=== PATIENT | female | born 1985 | race Hispanic/Latino ===

== ENCOUNTER → 2018-01-04 16:36 | Outpatient (CLI) | payer OTHER, MEDICAID, SELFPAY ==
--- NOTE | 2018-01-04 | DI.RAD.S_ITS ---
PROCEDURE: XR KNEE LT 3V INDICATIONS: BILATERAL KNEE PAIN TECHNIQUE: 3 views of the knee were acquired. COMPARISON: None. FINDINGS: Bones: No fractures or dislocations. No suspicious bony lesions. Patella erica. Soft tissues: No joint effusion. No suspicious soft tissue calcifications. IMPRESSION: No acute fractures or dislocations. Patella erica which may be positional. Dictated by: Toney Clifford M.D. on 01/04/2018 at 17:13 Approved by: Toney Clifford M.D. on 01/04/2018 at 17:14
--- NOTE | 2018-01-04 | DI.RAD.S_ITS ---
PROCEDURE: XR KNEE RT 3V INDICATIONS: BILATERAL KNEE PAIN TECHNIQUE: 3 views of the knee were acquired. COMPARISON: None. FINDINGS: Bones: No fractures or dislocations. No suspicious bony lesions. Soft tissues: No joint effusion. No suspicious soft tissue calcifications. IMPRESSION: No acute fractures or dislocations. Dictated by: Toney Clifford M.D. on 01/04/2018 at 17:12 Approved by: Toney Clifford M.D. on 01/04/2018 at 17:13
== END ==
PROVIDERS: Family Provider Family Medicine; PCP Family Medicine; Visit Provider Family Medicine
DX: M25.561 Pain in right knee (principal); M25.562 Pain in left knee
CPT/HCPCS: 73562

== ENCOUNTER → 2018-01-31 15:36 | Outpatient (CLI) | payer OTHER, MEDICAID, SELFPAY ==
--- NOTE | 2018-01-31 15:39 | DI.RAD.S_ITS ---
PROCEDURE: XR CHEST 2V INDICATIONS: COUGH TECHNIQUE: 2 views of the chest were acquired. COMPARISON: [facility], , CHEST 2 VIEW, 09/20/2017, 22:34. FINDINGS: Surgical changes and devices: None. Lungs and pleura: No pleural effusions or pneumothorax. Lungs are clear. Mediastinum: Mediastinal contours are normal. Heart size is normal. Bones and chest wall: No suspicious bony abnormalities. Soft tissues appear unremarkable. IMPRESSION: No acute cardiopulmonary disease. Dictated by: Deisi Wilkerson M.D. on 01/31/2018 at 16:19 Approved by: Deisi Wilkerson M.D. on 01/31/2018 at 16:19
== END ==
PROVIDERS: Family Provider Family Medicine; PCP Family Medicine; Visit Provider Family Medicine
DX: R05 Cough (principal)
CPT/HCPCS: 71046

== ENCOUNTER → 2018-06-01 10:13 | Outpatient (REF) | payer OTHER, MEDICAID, SELFPAY | LOC: LAB 10:13 | PROVIDERS: Family Provider Family Medicine; PCP Family Medicine; Visit Provider Nurse Practitioner Family | DX: L98.9 Disorder of the skin and subcutaneous tissue, unspecified (principal); R21 Rash and other nonspecific skin eruption | CPT/HCPCS: 87070; 87077; 87102; 87147; 87186 ==

== ENCOUNTER 2018-07-28 08:15 | Outpatient (RCR) | payer OTHER, MEDICAID, SELFPAY ==
--- NOTE | 2018-07-21 16:56 | PT.OIE ---
Current Diagnoses Tension-type headache, unspecified, not intractable (07/21/18) Strain of other muscles, fascia and tendons at shoulder and upper arm level, unspecified arm, subsequent encounter (07/21/18) Provider Visit Care Team Role Provider Type Tonie Schmitt MD Attending Provider Physician Family Provider Primary Care Provider Specialty: Family Practice Address: [address] [place] [address], [id number] Email: Physical Therapy Initial Evaluation PT-OP-A Visit Information Start: 07/21/18 15:28 Freq: Status: Active Protocol: Document 07/21/18 12:00 DCW (Rec: 07/21/18 16:56 DCW [id number]) Out-Patient Physical Therapy Visit Information Visit Information Visit Type Initial Evaluation Visit Start Time 12:00 Visit Stop Time 12:45 Total Visit Minutes 45 Visit Number 1 Number of MARKETING PLANNING MANAGER Visits 0 Evaluation Information Evaluation Date 07/21/18 PT-OP-B Current Condition Start: 07/21/18 15:28 Freq: Status: Active Protocol: Document 07/21/18 12:00 DCW (Rec: 07/21/18 16:56 DCW [id number]) Current Condition History of Current Condition Onset Date 10 years Current Complaints Migraines, Neck pain History of Current Condition Pt is a 32 year old female presenting with a ten year history of migraines and neck pain, with a worsening over the last 2-3 years. Pt reports she has previously been seen for treatment at this facility 2-3 years ago, but had to stop due to insurance authorization. 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 Pt reports she often has very point-specific pain, typically at her left temporal lobe, and the pain frequently causes vomiting. Pt also has pain radiating down her neck into her shoulder, L>R. 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 Prior Functional Status Baseline Function- ADL's Independent Baseline Function- Mobility Independent Current Functional Impairments (Reported) Functional Limitations- ADL's Pt unable to drive, cook, or clean in the middle of a migraine. Functional Limitations- Work/School Migraines limit pt's effectiveness at work, either needing to call off, or work through it, but when I do that , I might as well not even be there, I can't do anything. PT-OP-C Subjective Start: 07/21/18 15:28 Freq: Status: Active Protocol: Document 07/21/18 12:00 DCW (Rec: 07/21/18 16:56 DCW [id number]) OP-PT Subjective Patient Comments Patient Comments Pt reports during a migraine, she has light, sound, and odor sensitivity. It's like I'm again. Patient Reported Progress Worse Patient Questionnaires Neck Disability Index NDI Score 26/50 = 52% Neck Disability Index Impairment 40 to 59% Impaired (Score 20- 29) OP-PT Pain Assessment Pain Assessment Grid Paper Pain Assessment Grid Completed Yes Location Bilateral superior shoulders Pain Location Details Bilateral superior shoulders, posterior cervical spine, left temproal lobe Intensity 5 Scale Used Numeric (1 - 10) Description Sharp Shooting Stabbing Throbbing Frequency Frequent PT-OP-F Manual Assessment Start: 07/21/18 15:28 Freq: Status: Active Protocol: Document 07/21/18 12:00 DCW (Rec: 07/21/18 16:56 DCW [id number]) Manual Assessments Soft Tissue Assessment Soft Tissue Mobility Assessment Pt presents with Severe tone and tenderness to palpation 3/ 4 - Wincing and withdraw at bilateral suboccipitals, bilateral upper traps, bilateral scalenes, and bilateral cervical paraspinal muscles. Bilateral pecs display moderate tone with tenderness to palpation 2/4 - Pain with wincing. Joint Mobility Assessment Joint Mobility Assessment C2-3 are rotated counter- clockwise, with a tenderness to palpation 2/4 - Pain with wincing. PT-OP-J Posture/Palpation/Skin Start: 07/21/18 15:28 Freq: Status: Active Protocol: Document 07/21/18 12:00 DCW (Rec: 07/21/18 16:56 DCW [id number]) Posture Evaluation Position Sitting Head/C-Spine Posture Excess Extension Forward Head Shoulder Posture (L) Rounded (R) Rounded PT-OP-K Range of Motion Start: 07/21/18 15:28 Freq: Status: Active Protocol: Document 07/21/18 12:00 DCW (Rec: 07/21/18 16:56 DCW [id number]) Cervical Spine Range of Motion Cervical Spine Active Degrees Testing Position Sitting Flexion 30 Extension 25 Rotation Left 38 Rotation Right 41 Lateral Flexion Left 22 Lateral Flexion Right 26 ROM Limitations Soft Tissue Tightness Bony Restriction Muscle Tone Pain PT-OP-L Special Tests Start: 07/21/18 15:28 Freq: Status: Active Protocol: Document 07/21/18 12:00 DCW (Rec: 07/21/18 16:56 DCW [id number]) Special Tests Cervical Spine Special Tests Passive Neck Flexion Test Results Pain, limited ROM Foraminal Compression Test Results Increased pain, no radicular pain Traction Test Results Pain relief PT-OP-Q Treatments Start: 07/21/18 15:28 Freq: Status: Active Protocol: Document 07/21/18 12:00 DCW (Rec: 07/21/18 16:56 DCW [id number]) Therapeutic Exercises Sitting Exercises Upper Trap stretch Sitting Exercise Name UT stretch Side bilateral Reps/Minutes 40 hold Scalene stretch Sitting Exercise Name Scalene stretch Side bilateral Reps/Minutes 40 hold Chin tuck Sitting Exercise Name Seated chin tuck Reps/Minutes 5 hold Standing Exercises Corner pec stretch Standing Exercise Name Pec stretch in corner Side bilateral Reps/Minutes 40 hold PT-OP-T Assessment and Plan Start: 07/21/18 15:28 Freq: Status: Active Protocol: Document 07/21/18 12:00 DCW (Rec: 07/21/18 16:56 DCW [id number]) Physical Therapy Assessment Rehab Potential Rehabilitation Potential Good Evaluation Complexity Number of Personal Factors/Comorbidities 0 Number of Body Systems Impaired 3 Clinical Presentation at Evaluation Unstable Impairments Impairments Functional Activities Pain Posture ROM Soft Tissue Mobility Strength Tone Goals Four Impairment Muscle tone Nickel Operator Goal (LTG) Pt to exhibit moderate tone in bilateral suboccipitals, bilateral upper traps, bilateral scalenes, and bilateral cervical paraspinal muscles LTG Duration 09/21/18 Three Impairment Cervical ROM Nickel Operator Goal (LTG) Pt to increase pain-free cervical flexion to 50? and extension to 45? LTG Duration 09/21/18 Two Impairment Activity participation Short Term Goal (STG) Pt to go one week without having a migraine restrict her driving STG Duration 08/21/18 Assisted Goal (LTG) Pt to go one week without a migraine at work LTG Duration 09/21/18 One Impairment Pt does not have an appropriate home exercise program Short Term Goal (STG) Pt to be independent and compliant with an appropriate HEP STG Duration 08/21/18 Assessment Summary Assessment Pt presents with signs and symptoms consistent with severe migraine activity, cervical tone and limited mobility, greatly affecting her function of work, driving, and housework. Pt has severe paraspinal, upper trap, scalene, and sub-occipital tone, which also appears to be causing rotation of her C2 and C3 vertebrae. 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 Decreasing tone, improving mobility, and improving body mechanics should help decrease frequency and severity of pt' s migraines. Additionally, pt may benefit from modalities to decrease pain and tone. Physical Therapy Plan Frequency and Duration Frequency of Treatment 2x/Week Duration of Treatment 3 months Plan of Care Start Date 07/21/18 Plan of Care End Date 10/19/18 Therapeutic Interventions Therapeutic Interventions Aquatic Therapy Home Exercise Program Joint Mobilizations Manual Therapy Self-Care/Home Management Soft Tissue Mobilization Therapeutic Activities Therapeutic Exercises Modalities Cold Pack/Ice Massage Electric Stimulation Hot Packs Ultrasound Next Visit Focus/Plan Next Note Type Treatment Note Next Visit Plan STM, Pain-control modalities, posture training, computer sitting ergo/pt transfer mechanics training, flexibility
--- NOTE | 2018-07-21 16:57 | PT.OPPOC ---
Current Diagnoses Tension-type headache, unspecified, not intractable (07/21/18) Strain of other muscles, fascia and tendons at shoulder and upper arm level, unspecified arm, subsequent encounter (07/21/18) Provider Visit Care Team Role Provider Type Tonie Schmitt MD Attending Provider Physician Family Provider Primary Care Provider Specialty: Family Practice Address: [address] [place] [address], [id number] Email: Plan Of Care PT-OP-T Assessment and Plan Start: 07/21/18 15:28 Freq: Status: Active Protocol: Document 07/21/18 12:00 DCW (Rec: 07/21/18 16:56 DCW [id number]) Physical Therapy Assessment Rehab Potential Rehabilitation Potential Good Evaluation Complexity Number of Personal Factors/Comorbidities 0 Number of Body Systems Impaired 3 Clinical Presentation at Evaluation Unstable Impairments Impairments Functional Activities Pain Posture ROM Soft Tissue Mobility Strength Tone Goals Four Impairment Muscle tone Nursing Home Goal (LTG) Pt to exhibit moderate tone in bilateral suboccipitals, bilateral upper traps, bilateral scalenes, and bilateral cervical paraspinal muscles LTG Duration 09/21/18 Three Impairment Cervical ROM Nursing Home Goal (LTG) Pt to increase pain-free cervical flexion to 50? and extension to 45? LTG Duration 09/21/18 Two Impairment Activity participation Short Term Goal (STG) Pt to go one week without having a migraine restrict her driving STG Duration 08/21/18 Nursing Home Goal (LTG) Pt to go one week without a migraine at work LTG Duration 09/21/18 One Impairment Pt does not have an appropriate home exercise program Short Term Goal (STG) Pt to be independent and compliant with an appropriate HEP STG Duration 08/21/18 Assessment Summary Assessment Pt presents with signs and symptoms consistent with severe migraine activity, cervical tone and limited mobility, greatly affecting her function of work, driving, and housework. Pt has severe paraspinal, upper trap, scalene, and sub-occipital tone, which also appears to be causing rotation of her C2 and C3 vertebrae. 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 Decreasing tone, improving mobility, and improving body mechanics should help decrease frequency and severity of pt' s migraines. Additionally, pt may benefit from modalities to decrease pain and tone. Physical Therapy Plan Frequency and Duration Frequency of Treatment 2x/Week Duration of Treatment 3 months Plan of Care Start Date 07/21/18 Plan of Care End Date 10/19/18 Therapeutic Interventions Therapeutic Interventions Aquatic Therapy Home Exercise Program Joint Mobilizations Manual Therapy Self-Care/Home Management Soft Tissue Mobilization Therapeutic Activities Therapeutic Exercises Modalities Cold Pack/Ice Massage Electric Stimulation Hot Packs Ultrasound Next Visit Focus/Plan Next Note Type Treatment Note Next Visit Plan STM, Pain-control modalities, posture training, computer sitting ergo/pt transfer mechanics training, flexibility Plan of Care Dates Plan of Care Start Date 07/21/18 Plan of Care End Date 10/19/18 Please Sign and Return: I have reviewed this Plan of Care and certify that the skilled therapy services above are required to meet the patient?s needs. Physician Signature Date Printed Name and Credentials Clinical Instructor Signature Printed Name and Credentials
--- NOTE | 2018-07-28 09:00 | PT.OTN ---
Current Diagnoses Tension-type headache, unspecified, not intractable (07/28/18) Strain of other muscles, fascia and tendons at shoulder and upper arm level, unspecified arm, initial encounter (07/28/18) Physical Therapy Treatment Note PT-OP-A Visit Information Start: 07/21/18 15:28 Freq: Status: Active Protocol: Document 07/28/18 08:16 SAK (Rec: 07/28/18 09:00 SAK [id number]) Out-Patient Physical Therapy Visit Information Visit Information Visit Type Treatment Note Visit Start Time 08:15 Visit Stop Time 09:05 Total Visit Minutes 50 Visit Number 2 Number of OUTSIDE ENERGY SALES REPRESENTATIVES Visits 0 Evaluation Information Evaluation Date 07/21/18 PT-OP-B Current Condition Start: 07/21/18 15:28 Freq: Status: Active Protocol: Document 07/21/18 12:00 DCW (Rec: 07/21/18 16:56 DCW [id number]) Current Condition History of Current Condition Onset Date 10 years Current Complaints Migraines, Neck pain History of Current Condition Pt is a 32 year old female presenting with a ten year history of migraines and neck pain, with a worsening over the last 2-3 years. Pt reports she has previously been seen for treatment at this facility 2-3 years ago, but had to stop due to insurance authorization. 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 Pt reports she often has very point-specific pain, typically at her left temporal lobe, and the pain frequently causes vomiting. Pt also has pain radiating down her neck into her shoulder, L>R. 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 Prior Functional Status Baseline Function- ADL's Independent Baseline Function- Mobility Independent Current Functional Impairments (Reported) Functional Limitations- ADL's Pt unable to drive, cook, or clean in the middle of a migraine. Functional Limitations- Work/School Migraines limit pt's effectiveness at work, either needing to call off, or work through it, but when I do that , I might as well not even be there, I can't do anything. PT-OP-C Subjective Start: 07/21/18 15:28 Freq: Status: Active Protocol: Document 07/28/18 08:16 SAK (Rec: 07/28/18 09:00 SAK [id number]) OP-PT Subjective Patient Comments Patient Comments Compliant with HEP, no migraine today. PT-OP-F Manual Assessment Start: 07/21/18 15:28 Freq: Status: Active Protocol: Document 07/21/18 12:00 DCW (Rec: 07/21/18 16:56 DCW [id number]) Manual Assessments Soft Tissue Assessment Soft Tissue Mobility Assessment Pt presents with Severe tone and tenderness to palpation 3/ 4 - Wincing and withdraw at bilateral suboccipitals, bilateral upper traps, bilateral scalenes, and bilateral cervical paraspinal muscles. Bilateral pecs display moderate tone with tenderness to palpation 2/4 - Pain with wincing. Joint Mobility Assessment Joint Mobility Assessment C2-3 are rotated counter- clockwise, with a tenderness to palpation 2/4 - Pain with wincing. PT-OP-J Posture/Palpation/Skin Start: 07/21/18 15:28 Freq: Status: Active Protocol: Document 07/21/18 12:00 DCW (Rec: 07/21/18 16:56 DCW [id number]) Posture Evaluation Position Sitting Head/C-Spine Posture Excess Extension Forward Head Shoulder Posture (L) Rounded (R) Rounded PT-OP-K Range of Motion Start: 07/21/18 15:28 Freq: Status: Active Protocol: Document 07/21/18 12:00 DCW (Rec: 07/21/18 16:56 DCW [id number]) Cervical Spine Range of Motion Cervical Spine Active Degrees Testing Position Sitting Flexion 30 Extension 25 Rotation Left 38 Rotation Right 41 Lateral Flexion Left 22 Lateral Flexion Right 26 ROM Limitations Soft Tissue Tightness Bony Restriction Muscle Tone Pain PT-OP-L Special Tests Start: 07/21/18 15:28 Freq: Status: Active Protocol: Document 07/21/18 12:00 DCW (Rec: 07/21/18 16:56 DCW [id number]) Special Tests Cervical Spine Special Tests Passive Neck Flexion Test Results Pain, limited ROM Foraminal Compression Test Results Increased pain, no radicular pain Traction Test Results Pain relief PT-OP-Q Treatments Start: 07/21/18 15:28 Freq: Status: Active Protocol: Document 07/28/18 08:16 [facility] (Rec: 07/28/18 09:00 [facility] [id number]) Cardio Equipment Upper Body Ergometer (UBE) Duration (Minutes) 4 RPM 100 Therapeutic Exercises Sitting Exercises shoulder rolls Reps/Minutes 5x shoulder shrug Reps/Minutes 5x Upper Trap stretch Sitting Exercise Name UT stretch Side bilateral Reps/Minutes 40 hold Scalene stretch Sitting Exercise Name Scalene stretch Side bilateral Reps/Minutes 40 hold Chin tuck Sitting Exercise Name Seated chin tuck Reps/Minutes 5 hold Standing Exercises wall posture Reps/Minutes 3x 5 Corner pec stretch Standing Exercise Name Pec stretch in corner Side bilateral Reps/Minutes 40 hold Manual Therapy Treatment Soft Tissue Mobilization c/s, UT, levator scap Mobilization Type Myofascial Release Strumming Sustained Pressure Manual Traction c/s Details gentle Reps/Duration 3 min Manual Techniques SOR Body Position Hooklying Reps/Duration 5 min Self-Care/Home Management Treatment Education Patient Education Body Mechanics Posture Other Education sitting ergonomics PT-OP-R Modalities Start: 07/21/18 15:28 Freq: Status: Active Protocol: Document 07/28/18 08:16 [facility] (Rec: 07/28/18 09:00 [facility] [id number]) Hot Pack/Cold Pack Treatment Hot Pack Location c/s Patient Position Hooklying Treatment Duration (minutes) 15 PT-OP-T Assessment and Plan Start: 07/21/18 15:28 Freq: Status: Active Protocol: Document 07/28/18 08:16 [facility] (Rec: 07/28/18 09:00 [facility] [id number]) Physical Therapy Assessment Goals Four Impairment Muscle tone Insurance Underwriting Assistant Goal (LTG) Pt to exhibit moderate tone in bilateral suboccipitals, bilateral upper traps, bilateral scalenes, and bilateral cervical paraspinal muscles LTG Duration 09/21/18 Three Impairment Cervical ROM Insurance Underwriting Assistant Goal (LTG) Pt to increase pain-free cervical flexion to 50? and extension to 45? LTG Duration 09/21/18 Two Impairment Activity participation Short Term Goal (STG) Pt to go one week without having a migraine restrict her driving STG Duration 08/21/18 Halfway Goal (LTG) Pt to go one week without a migraine at work LTG Duration 09/21/18 One Impairment Pt does not have an appropriate home exercise program Short Term Goal (STG) Pt to be independent and compliant with an appropriate HEP STG Duration 08/21/18 Assessment Summary Assessment Decreased pain and muscle tension with postural correction, manual techniques. Patient compliant with HEP Physical Therapy Plan Frequency and Duration Frequency of Treatment 2x/Week Duration of Treatment 3 months Plan of Care Start Date 07/21/18 Plan of Care End Date 10/19/18 Therapeutic Interventions Therapeutic Interventions Aquatic Therapy Home Exercise Program Joint Mobilizations Manual Therapy Self-Care/Home Management Soft Tissue Mobilization Therapeutic Activities Therapeutic Exercises Modalities Cold Pack/Ice Massage Electric Stimulation Hot Packs Ultrasound Next Visit Focus/Plan Next Note Type Treatment Note Next Visit Plan Patient transfer training; body mechanics. Continue ther ex, posture training, manual therapy and modalities for pain
--- NOTE | 2018-11-14 14:01 | PT.OPDS ---
Current Diagnoses Tension-type headache, unspecified, not intractable (07/28/18) Strain of other muscles, fascia and tendons at shoulder and upper arm level, unspecified arm, initial encounter (07/28/18) Provider Visit Care Team Role Provider Type Tonie Schmitt MD Attending Provider Physician Family Provider Primary Care Provider Specialty: Family Practice Address: [address] [place] [address], [facility] Email: Visit Number Visit Number 2 Discharge Summary PT-OP-B Current Condition Start: 07/21/18 15:28 Freq: Status: Active Protocol: Document 07/21/18 12:00 DCW (Rec: 07/21/18 16:56 DCW [id number]) Current Condition History of Current Condition Onset Date 10 years Current Complaints Migraines, Neck pain History of Current Condition Pt is a 32 year old female presenting with a ten year history of migraines and neck pain, with a worsening over the last 2-3 years. Pt reports she has previously been seen for treatment at this facility 2-3 years ago, but had to stop due to insurance authorization. 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 Pt reports she often has very point-specific pain, typically at her left temporal lobe, and the pain frequently causes vomiting. Pt also has pain radiating down her neck into her shoulder, L>R. 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 Prior Functional Status Baseline Function- ADL's Independent Baseline Function- Mobility Independent Current Functional Impairments (Reported) Functional Limitations- ADL's Pt unable to drive, cook, or clean in the middle of a migraine. Functional Limitations- Work/School Migraines limit pt's effectiveness at work, either needing to call off, or work through it, but when I do that , I might as well not even be there, I can't do anything. PT-OP-C Subjective Start: 07/21/18 15:28 Freq: Status: Active Protocol: Document 07/28/18 08:16 SAK (Rec: 07/28/18 09:00 SAK [id number]) OP-PT Subjective Patient Comments Patient Comments Compliant with HEP, no migraine today. PT-OP-F Manual Assessment Start: 07/21/18 15:28 Freq: Status: Active Protocol: Document 07/21/18 12:00 DCW (Rec: 07/21/18 16:56 DCW [id number]) Manual Assessments Soft Tissue Assessment Soft Tissue Mobility Assessment Pt presents with Severe tone and tenderness to palpation 3/ 4 - Wincing and withdraw at bilateral suboccipitals, bilateral upper traps, bilateral scalenes, and bilateral cervical paraspinal muscles. Bilateral pecs display moderate tone with tenderness to palpation 2/4 - Pain with wincing. Joint Mobility Assessment Joint Mobility Assessment C2-3 are rotated counter- clockwise, with a tenderness to palpation 2/4 - Pain with wincing. PT-OP-J Posture/Palpation/Skin Start: 07/21/18 15:28 Freq: Status: Active Protocol: Document 07/21/18 12:00 DCW (Rec: 07/21/18 16:56 DCW [id number]) Posture Evaluation Position Sitting Head/C-Spine Posture Excess Extension Forward Head Shoulder Posture (L) Rounded (R) Rounded PT-OP-K Range of Motion Start: 07/21/18 15:28 Freq: Status: Active Protocol: Document 07/21/18 12:00 DCW (Rec: 07/21/18 16:56 DCW [id number]) Cervical Spine Range of Motion Cervical Spine Active Degrees Testing Position Sitting Flexion 30 Extension 25 Rotation Left 38 Rotation Right 41 Lateral Flexion Left 22 Lateral Flexion Right 26 ROM Limitations Soft Tissue Tightness Bony Restriction Muscle Tone Pain PT-OP-L Special Tests Start: 07/21/18 15:28 Freq: Status: Active Protocol: Document 07/21/18 12:00 DCW (Rec: 07/21/18 16:56 DCW [id number]) Special Tests Cervical Spine Special Tests Passive Neck Flexion Test Results Pain, limited ROM Foraminal Compression Test Results Increased pain, no radicular pain Traction Test Results Pain relief PT-OP-T Assessment and Plan Start: 07/21/18 15:28 Freq: Status: Active Protocol: Document 11/14/18 13:59 DCW (Rec: 11/14/18 14:00 DCW [id number]) Physical Therapy Assessment Goals Four Impairment Muscle tone Slip Caster Goal (LTG) Pt to exhibit moderate tone in bilateral suboccipitals, bilateral upper traps, bilateral scalenes, and bilateral cervical paraspinal muscles LTG Duration 09/21/18 Three Impairment Cervical ROM Slip Caster Goal (LTG) Pt to increase pain-free cervical flexion to 50? and extension to 45? LTG Duration 09/21/18 Two Impairment Activity participation Short Term Goal (STG) Pt to go one week without having a migraine restrict her driving STG Duration 08/21/18 Long-Term Goal (LTG) Pt to go one week without a migraine at work LTG Duration 09/21/18 One Impairment Pt does not have an appropriate home exercise program Short Term Goal (STG) Pt to be independent and compliant with an appropriate HEP STG Duration 08/21/18 Assessment Summary Assessment Following her first two appointments, pt called to request cancellation of her remaining appointments, reports she would be unable to commit to PT due to her work schedule. Pt to be discharged from skilled PT at this time. Physical Therapy Plan Discharge Physical Therapy Discharge Reasons Patient Request Next Visit Focus/Plan Next Note Type Discharge Summary
== END 2018-11-20 10:36 | disposition home or self-care (01) ==
LOC: PHYS 08:15
PROVIDERS: Family Provider Family Medicine; PCP Family Medicine; Visit Provider Family Medicine
DX: S46.819A Strain of other muscles, fascia and tendons at shoulder and upper arm level, unspecified arm, initial encounter (principal); G44.209 Tension-type headache, unspecified, not intractable
CPT/HCPCS: 97110; 97140; 97161; 97535

== ENCOUNTER 2018-08-27 12:42 | Emergency (ER) | payer OTHER, MEDICAID, SELFPAY ==
[2018-08-27 12:54] VITALS: BP 149/92; PULSE 74; RESP 16; O2SAT 100; BMI 55.7
--- NOTE | 2018-08-27 15:48 | ED.EAR ---
HPI - Ear Problem <BIBIANA Calderon - Last Filed: 08/27/18 21:34> General Chief complaint: Ear Stated complaint: Thinks popped eardrum Time Seen by Provider: 08/27/18 15:48 Source: patient Mode of arrival: ambulatory Limitations: no limitations History of Present Illness HPI Narrative: 33-year-old female history of migraines that is a nonsmoker here for complaint of pain into her right ear. She states that she blew her nose last night and felt a pop to her right ear and has had some discomfort to that ear since then. She denies any drainage from the ear. She does state that she has had cold-like symptoms with nasal congestion over the past several days. No fevers no chills. Positive p.o. intake. No other concerns or complaints at this timeframe. She denies any decrease of hearing ability. Related Data Previous Rx's Medication Instructions Recorded oxycodone-acetaminophen [Endocet] 1 - 2 tab PO Q4HP PRN #20 tab 07/28/17 Allergies Allergy/AdvReac Type Severity Reaction Status Date / Time ketorolac [KETOROLAC] Allergy Mild ITCHING Verified 08/27/18 12:54 ALL OVER, VOMITING hepatitis B virus vaccine Allergy Unknown Verified 08/27/18 12:54 [HEPATITIS B VIRUS VACCINE] latex [LATEX] Allergy Unknown Verified 08/27/18 12:54 tuberculin,PPD,multi-puncture Allergy Unknown Verified 08/27/18 12:54 [TUBERCULIN,PPD,MULTI-PUNCTURE] Review of Systems <BIBIANA Calderon - Last Filed: 08/27/18 21:34> Constitutional Denies chills, Denies fever(s), Denies lethargy and Denies weakness Eyes Denies change in vision, Denies eye discharge, Denies irritation and Denies loss of vision ENT Ears, Nose, Mouth, and Throat: Reports otalgia and Reports nasal congestion Cardiovascular Denies chest pain, Denies irregular heart rhythm, Denies lightheadedness, Denies palpitations, Denies dyspnea, Denies dyspnea on exertion and Denies orthopnea Respiratory Denies cough, Denies dyspnea, Denies dyspnea on exertion and Denies wheezing Gastrointestinal Gastrointestinal: Denies abdominal pain, Denies change in bowel habits, Denies diarrhea, Denies nausea and Denies vomiting Genitourinary Denies hematuria, Denies flank pain, Denies urinary incontinence and Denies urinary urgency Integumentary/Breasts Denies pruritus, Denies erythema, Denies rash and Denies wounds Neurologic Denies confusion, Denies loss of vision and Denies weakness Psychiatric Denies anxiety, Denies confusion, Denies depression, Denies homicidal ideation and Denies suicidal ideation Endocrine Denies palpitations Hematologic/Lymphatic Denies easy bruising Allergic/Immunologic Denies wheezing Exam <BIBIANA Calderon - Last Filed: 08/27/18 21:34> Initial Vital Signs Initial Vital Signs: Vital Signs Pulse Rate 74 08/27/18 12:54 Respiratory Rate 16 08/27/18 12:54 Blood Pressure 149/92 H 08/27/18 12:54 Pulse Oximetry 100 08/27/18 12:54 Const General: cooperative and well developed Nutritional Appearance: well nourished Orientation: alert, awake, oriented x3 and not confused HENMT Head: normal to inspection Ears: external ears normal and TM's normal bilaterally Mouth: oral mucosae normal and moist mucous membranes Eyes Eyelids: eyelids normal Conjunctivae: conjunctivae normal Sclera: sclerae normal Pupils: PERRL EOM: EOM intact bilaterally Resp Effort & Inspection: normal respiratory effort, able to speak in complete sentences, no respiratory distress and no use of accessory muscles Auscultation: clear to auscultation bilaterally, no rales, no rhonchi and no wheezes Cardio Rate: regular rate Rhythm: regular rhythm Heart Sounds: no click, no gallops, no murmurs and no rubs Pulses: normal peripheral pulses Skin General: no rashes or lesions noted, No jaundice and No petechiae Neuro General: alert, oriented x3, gait normal and no focal motor deficits Speech: speech normal <Kimani Acosta DO - Last Filed: 08/28/18 08:30> Initial Vital Signs Initial Vital Signs: Vital Signs Pulse Rate 74 08/27/18 12:54 Respiratory Rate 16 08/27/18 12:54 Blood Pressure 149/92 H 08/27/18 12:54 Pulse Oximetry 100 08/27/18 12:54 Course <BIBIANA Calderon - Last Filed: 08/27/18 21:34> Vital Signs - 8 hr 08/27/18 16:28 Pulse Rate 84 Respiratory Rate 16 Blood Pressure 136/90 Pulse Oximetry 97 <Kimani Acosta DO - Last Filed: 08/28/18 08:30> Vital Signs - 8 hr 08/27/18 16:28 Pulse Rate 84 Respiratory Rate 16 Blood Pressure 136/90 Pulse Oximetry 97 Medical Decision Making <BIBIANA Calderon - Last Filed: 08/27/18 21:34> MDM Narrative Medical decision making narrative: Normal exam today with no signs of ear infection or tympanic rupture. Signs and symptoms presents as serous otitis secondary to a viral upper respiratory infection. Plenty of fluids and rest. [id number] Tylenol or Motrin as needed for any discomfort. May also use jfhj-jeg-[id number] guaifenesin for congestion. Follow up with primary care provider. Return emergency room for any worsening symptoms. Discharge Plan Departure Patient Disposition: Home Clinical Impression: Acute serous otitis media Discharge Date/Time: 08/27/18 16:30 Interventions: ED Discharge Assessment Last Done: 08/27/18 16:28 Instructions: DI for Ear Pain-Adult Activity Restrictions/Additional Instructions: Normal exam today with no signs of ear infection or tympanic rupture. Signs and symptoms presents as serous otitis secondary to a viral upper respiratory infection. Plenty of fluids and rest. [id number]-[id number] Tylenol or Motrin as needed for any discomfort. May also use [id number] guaifenesin for congestion. Follow up with primary care provider. Return emergency room for any worsening symptoms. Prescriptions: No Action oxycodone-acetaminophen [Endocet] 5 MG/325 MG tablet 1 - 2 tab PO Q4HP PRNQty: 20 RF: 0 Referrals: Tonie Schmitt MD [Primary Care Provider] - <Kimani Acosta DO - Last Filed: 08/28/18 08:30> Cosign ED Attending Javier Attestation: I was available for consultation during this patient's emergency department encounter
[2018-08-27 16:28] VITALS: BP 136/90; PULSE 84; RESP 16; O2SAT 97
== END 2018-08-27 16:30 | disposition home or self-care (01) ==
PROVIDERS: Emergency Provider Nurse Practitioner Family; Family Provider Family Medicine; PCP Family Medicine
DX: H65.01 Acute serous otitis media, right ear (principal)
CPT/HCPCS: 99282

== ENCOUNTER 2018-09-17 06:51 | Emergency (ER) | payer OTHER, MEDICAID, SELFPAY ==
[2018-09-17 06:55] VITALS: BP 116/77; PULSE 90; RESP 17; TEMP 36.9; O2SAT 100; BMI 56.1
--- NOTE | 2018-09-17 06:57 | DI.RAD.S_ITS ---
PROCEDURE: XR CHEST 2V INDICATIONS: shortness of breath TECHNIQUE: 2 views of the chest were acquired. COMPARISON: [facility], , XR CHEST 2V, 01/31/2018, 15:18. FINDINGS: Surgical changes and devices: Cholecystectomy clips. Lungs and pleura: Lungs are clear. No pleural effusions or pneumothorax. Mediastinum: Mediastinal contours are normal. Heart size is normal. Bones and chest wall: No suspicious bony abnormalities. Soft tissues appear unremarkable. IMPRESSION: No acute pulmonary process. Dictated by: Ashley Rincon M.D. on 09/17/2018 at 7:59 Approved by: Ashley Rincon M.D. on 09/17/2018 at 8:03
--- NOTE | 2018-09-17 07:21 | ED.CHESTPAIN ---
HPI - Chest Pain General Chief Complaint: Chest Pain Stated Complaint: CHEST HURTS Time Seen by Provider: 09/17/18 06:57 Source: patient Mode of arrival: ambulatory Limitations: no limitations History of Present Illness HPI narrative: Patient is a 33-year-old female presenting with left-sided chest pain ongoing since last last evening at about 10:00 p.m.. 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 She says it is intermittent but does it does hurt when she pushes on it and moves her arm. She denies any injury she has had cough but she does not think it has been too bad. Denies any shortness of breath. No heart palpitations. She has been having some trouble with memory. She says she can't remember what she is allergic to she does not remember what people have been saying to her last evening. No fever or chills no abdominal pain. MD complaint: chest pain Onset (ago): hour(s) Duration: intermittent Pain location: left chest Severity: moderate Pain radiation: none Relieving factors: nothing Exacerbating factors: movement Related Data Home Medications Medication Instructions Recorded Confirmed omeprazole 20 mg PO DAILY 09/17/18 09/17/18 propranolol 10 mg PO BEDTIME 09/17/18 09/17/18 Allergies Allergy/AdvReac Type Severity Reaction Status Date / Time ketorolac [KETOROLAC] Allergy Mild ITCHING Verified 09/17/18 07:54 ALL OVER, VOMITING hepatitis B virus vaccine Allergy Unknown Verified 09/17/18 07:54 [HEPATITIS B VIRUS VACCINE] latex [LATEX] Allergy Unknown Verified 09/17/18 07:54 tuberculin,PPD,multi-puncture Allergy Unknown Verified 09/17/18 07:54 [TUBERCULIN,PPD,MULTI-PUNCTURE] Review of Systems Review of Systems ROS Unobtainable: All systems reviewed & are unremarkable except as noted in HPI and below Constitutional Denies chills, Denies fever(s), Denies lethargy and Denies weakness Cardiovascular Reports chest pain, Denies dyspnea and Denies dyspnea on exertion Respiratory Denies cough, Denies dyspnea, Denies dyspnea on exertion and Denies wheezing Gastrointestinal Gastrointestinal: Denies abdominal pain, Denies change in bowel habits, Denies diarrhea, Denies nausea and Denies vomiting Genitourinary Denies hematuria, Denies flank pain, Denies urinary incontinence and Denies urinary urgency Musculoskeletal Denies back pain, Denies muscle weakness, Denies numbness and Denies tingling Integumentary/Breasts Denies pruritus, Denies erythema, Denies rash and Denies wounds Neurologic Denies numbness, Denies tingling and Denies weakness Allergic/Immunologic Denies wheezing [facility] Medical History Anxiety (Acute) Migraine (Acute) Social History Smoking Status: Never smoker alcohol intake: never substance use type: does not use Social History Smoking Status: Never smoker alcohol intake: never substance use type: does not use Exam Initial Vital Signs Initial Vital Signs: Vital Signs Temperature 98.5 F 09/17/18 06:55 Pulse Rate 90 09/17/18 06:55 Respiratory Rate 17 09/17/18 06:55 Blood Pressure 116/77 09/17/18 06:55 Pulse Oximetry 100 09/17/18 06:55 GENERAL: alert overweight female no acute distress does seem slightly anxious HEENT: Head atraumatic,EOMI, pupils reactive, face symmetric, CARDIOVASCULAR: Regular rate and rhythm without murmurs, rubs or gallops. RESPIRATORY: Breath sounds equal bilaterally, no wheezes rales or rhonchi. ABDOMEN: Soft, nontender. Normoactive bowel sounds all 4 quadrants. No guarding or rebound. EXTREMITIES: Normal range of motion, no clubbing or edema. Neurovascularly intact NEUROLOGICAL: Alert and oriented x4.Normal gait and speech SKIN: Warm, dry, no laceration, no petechiae, no rashes or lesions. Scores HEART Score Heart Score history: Slightly Suspicious Heart Score EKG: Normal Heart Score Age: < 45 years old Heart Score risk factors: No known risk factors Heart Score troponin: < or = to normal limit Heart Score Total: 0 PERC Score Age greater than or equal to 50 years: No Heart rate greater than or equal to 100 bpm: No Room Air O2 Sat less than 95%: No Unilateral leg swelling: No Recent trauma or surgery: No Hemoptysis: No Prior PE or DVT: No Hormone Use: No Total PERC Score: 0 Course Orders Ordered: ED Orders 09/17/18 06:56 EKG-12 Lead Stat 09/17/18 06:57 XR chest 2V Stat 09/17/18 07:28 Complete Blood Count AUTO DIFF Stat Comprehensive Metabolic Panel Stat Lipase Stat Troponin & CK Cardiac Panel Stat Discontinued Medications Aspirin (Aspirin Chew) 324 mg PO NOW ONE Stop: 09/17/18 07:20 Last Admin: 09/17/18 07:36 Dose: Not Given Ibuprofen (Advil) 800 mg PO NOW ONE Stop: 09/17/18 07:20 Last Admin: 09/17/18 07:34 Dose: 800 mg Vital Signs - 8 hr 09/17/18 06:55 09/17/18 07:30 09/17/18 08:00 Temperature 98.5 F Pulse Rate 90 84 85 Respiratory Rate 17 11 L 9 L Blood Pressure 116/77 Blood Pressure [Left Arm] 115/76 120/72 Pulse Oximetry 100 100 96 MDM - Chest Pain Lab Data Attestation: I reviewed the patient's lab results. Result diagrams: 09/17/18 07:28 09/17/18 07:28 Lab Results 09/17/18 09/17/18 Range/Units 07:28 07:28 WBC 11.4 H (4.5-11.0) X10^3/uL RBC 4.62 (4.0-5.2) X10^6/uL Hgb 14.0 (12.0-16.0) g/dL Hct 41.9 (36-46) % MCV 90.7 (80-100) fL MCH 30.4 (26-34) PG MCHC 33.5 (30-36) % RDW 12.9 (11.6-14.8) % Plt Count 272 (150-400) X10^3/uL Neut % (Auto) 47.5 L (50-75) % Lymph % (Auto) 41.5 H (25-40) % Grimes % (Auto) 7.2 (3-14) % Eos % (Auto) 3.1 (2-4) % Baso % (Auto) 0.7 (0-2) % Neut # (Auto) 5400 (2983-2047) /uL Lymph # (Auto) 4700 H (4128-1332) /uL Grimes # (Auto) 800 (0-900) /uL Eos # (Auto) 300 (0-450) /uL Baso # (Auto) 100 (0-100) /uL Sodium 139 (137-145) mmol/L Potassium 3.7 (3.4-5.1) mmol/L Chloride 104 (98-107) mmol/L Carbon Dioxide 25 (22-32) mmol/L BUN 24 H (7-17) mg/dL Creatinine 0.70 (0.52-1.04) mg/dL Estimated GFR > 60.0 (>60) mL/min BUN/Creatinine Ratio 34.3 H (6-22) Glucose 96 (70-100) mg/dL Calcium 8.9 (8.4-10.2) mg/dL Total Bilirubin 0.4 (0.2-1.3) mg/dL AST 29 (14-36) IU/L ALT 44 (9-52) IU/L Alkaline Phosphatase 74 (38-126) U/L Total Creatine Kinase 53 (30-135) U/L CK-MB (CK-2) TNP CK-MB (CK-2) Rel Index TNP Troponin I < 0.012 (0.01-0.034) ng/mL Total Protein 7.8 (6.3-8.2) g/dL Albumin 4.1 (3.5-5.0) g/dL Globulin 3.7 (1.7-4.1) g/dL Albumin/Globulin Ratio 1.1 (1.0-2.8) Lipase 39 (23-300) U/L Imaging Data Chest x-ray: Radiologist's impression: PROCEDURE: XR CHEST 2V INDICATIONS: shortness of breath TECHNIQUE: 2 views of the chest were acquired. COMPARISON: [facility], XR CHEST 2V, 01/31/2018, 15:18. FINDINGS: Surgical changes and devices: Cholecystectomy clips. Lungs and pleura: Lungs are clear. No pleural effusions or pneumothorax. Mediastinum: Mediastinal contours are normal. Heart size is normal. Bones and chest wall: No suspicious bony abnormalities. Soft tissues appear unremarkable. IMPRESSION: No acute pulmonary process. Dictated by: Ashley Rincon M.D. on 09/17/2018 at 7:59 ECG Data Attestation: I personally reviewed and interpreted this ECG as follows: Prior ECG tracings: available for review Interpretation: normal sinus rhythm rate 89 ME interval [address] changes no T-wave inversions similar to previous EKG MDM Narrative Medical decision making narrative: patient's pain is reproducible with movement and palpation. This likely musculoskeletal. Low risk for cardiac disease. low risk for PE. Discharge Plan Departure Patient Disposition: Home Clinical Impression: Acute chest wall pain Discharge Date/Time: 09/17/18 08:36 Interventions: ED Discharge Assessment Last Done: 09/17/18 08:36 Instructions: Costochondritis, DI for Atypical Chest Pain Activity Restrictions/Additional Instructions: *You have been diagnosed with Chest wall pain *What to do: x-ray blood work and EKG are reassuring. This is likely musculoskeletal. Use ice or he has needed to help with pain. *Continue to take medications as directed Ibuprofen 600 mg every 6-8 hours if needed for pain *Follow up with your primary care provider in 2-3 days *Return to ER if you should have increasing pain, shortness of breath heart palpitations or any new, worsening or concerning symptoms Prescriptions: No Action propranolol 10 mg Tablet 10 mg PO BEDTIME RF: 0 omeprazole 20 mg Capsule,Delayed Release(Dr/Ec) 20 mg PO DAILY RF: 0 Referrals: Tonie Schmitt MD [Primary Care Provider] -
--- NOTE | 2018-09-17 07:27 | ED_ITS ---
HPI - Chest Pain General Chief Complaint: Chest Pain Stated Complaint: CHEST HURTS Time Seen by Provider: 09/17/18 06:57 Source: patient Mode of arrival: ambulatory Limitations: no limitations History of Present Illness HPI narrative: Patient is a 33-year-old female presenting with left-sided chest pain ongoing since last last evening at about 10:00 p.m.. 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 She says it is intermittent but does it does hurt when she pushes on it and moves her arm. She denies any injury she has had cough but she does not think it has been too bad. Denies any shortness of breath. No heart palpitations. She has been having some trouble with memory. She says she can't remember what she is allergic to she does not remember what people have been saying to her last evening. No fever or chills no abdominal pain. MD complaint: chest pain Onset (ago): hour(s) Duration: intermittent Pain location: left chest Severity: moderate Pain radiation: none Relieving factors: nothing Exacerbating factors: movement Related Data Home Medications Medication Instructions Recorded Confirmed omeprazole 20 mg PO DAILY 09/17/18 09/17/18 propranolol 10 mg PO BEDTIME 09/17/18 09/17/18 Allergies Allergy/AdvReac Type Severity Reaction Status Date / Time ketorolac [KETOROLAC] Allergy Mild ITCHING Verified 09/17/18 07:54 ALL OVER, VOMITING hepatitis B virus vaccine Allergy Unknown Verified 09/17/18 07:54 [HEPATITIS B VIRUS VACCINE] latex [LATEX] Allergy Unknown Verified 09/17/18 07:54 tuberculin,PPD,multi-puncture Allergy Unknown Verified 09/17/18 07:54 [TUBERCULIN,PPD,MULTI-PUNCTURE] Review of Systems Review of Systems ROS Unobtainable: All systems reviewed & are unremarkable except as noted in HPI and below Constitutional Denies chills, Denies fever(s), Denies lethargy and Denies weakness Cardiovascular Reports chest pain, Denies dyspnea and Denies dyspnea on exertion Respiratory Denies cough, Denies dyspnea, Denies dyspnea on exertion and Denies wheezing Gastrointestinal Gastrointestinal: Denies abdominal pain, Denies change in bowel habits, Denies diarrhea, Denies nausea and Denies vomiting Genitourinary Denies hematuria, Denies flank pain, Denies urinary incontinence and Denies urinary urgency Musculoskeletal Denies back pain, Denies muscle weakness, Denies numbness and Denies tingling Integumentary/Breasts Denies pruritus, Denies erythema, Denies rash and Denies wounds Neurologic Denies numbness, Denies tingling and Denies weakness Allergic/Immunologic Denies wheezing [facility] Medical History Anxiety (Acute) Migraine (Acute) Social History Smoking Status: Never smoker alcohol intake: never substance use type: does not use Social History Smoking Status: Never smoker alcohol intake: never substance use type: does not use Exam Initial Vital Signs Initial Vital Signs: Vital Signs Temperature 98.5 F 09/17/18 06:55 Pulse Rate 90 09/17/18 06:55 Respiratory Rate 17 09/17/18 06:55 Blood Pressure 116/77 09/17/18 06:55 Pulse Oximetry 100 09/17/18 06:55 GENERAL: alert overweight female no acute distress does seem slightly anxious HEENT: Head atraumatic,EOMI, pupils reactive, face symmetric, CARDIOVASCULAR: Regular rate and rhythm without murmurs, rubs or gallops. RESPIRATORY: Breath sounds equal bilaterally, no wheezes rales or rhonchi. ABDOMEN: Soft, nontender. Normoactive bowel sounds all 4 quadrants. No g uarding or rebound. EXTREMITIES: Normal range of motion, no clubbing or edema. Neurovascularly inta ct NEUROLOGICAL: Alert and oriented x4.Normal gait and speech SKIN: Warm, dry, no laceration, no petechiae, no rashes or lesions. Scores HEART Score Heart Score history: Slightly Suspicious Heart Score EKG: Normal Heart Score Age: < 45 years old Heart Score risk factors: No known risk factors Heart Score troponin: < or = to normal limit Heart Score Total: 0 PERC Score Age greater than or equal to 50 years: No Heart rate greater than or equal to 100 bpm: No Room Air O2 Sat less than 95%: No Unilateral leg swelling: No Recent trauma or surgery: No Hemoptysis: No Prior PE or DVT: No Hormone Use: No Total PERC Score: 0 Course Orders Ordered: ED Orders 09/17/18 06:56 EKG-12 Lead Stat 02/24/19 06:57 XR chest 2V Stat 09/17/18 07:28 Complete Blood Count AUTO DIFF Stat Comprehensive Metabolic Panel Stat Lipase Stat Troponin & CK Cardiac Panel Stat Discontinued Medications Aspirin (Aspirin Chew) 324 mg PO NOW ONE Stop: 09/17/18 07:20 Last Admin: 09/17/18 07:36 Dose: Not Given Ibuprofen (Advil) 800 mg PO NOW ONE Stop: 09/17/18 07:20 Last Admin: 09/17/18 07:34 Dose: 800 mg Vital Signs - 8 hr 09/17/18 06:55 09/17/18 07:30 09/17/18 08:00 Temperature 98.5 F Pulse Rate 90 84 85 Respiratory Rate 17 11 L 9 L Blood Pressure 116/77 Blood Pressure [Left Arm] 115/76 120/72 Pulse Oximetry 100 100 96 MDM - Chest Pain Lab Data Attestation: I reviewed the patient's lab results. Result diagrams: 09/17/18 07:28 09/17/18 07:28 Lab Results 09/17/18 09/17/18 Range/Units 07:28 07:28 WBC 11.4 H (4.5-11.0) X10^3/uL RBC 4.62 (4.0-5.2) X10^6/uL Hgb 14.0 (12.0-16.0) g/dL Hct 41.9 (36-46) % MCV 90.7 (80-100) fL MCH 30.4 (26-34) PG MCHC 33.5 (30-36) % RDW 12.9 (11.6-14.8) % Plt Count 272 (150-400) X10^3/uL Neut % (Auto) 47.5 L (50-75) % Lymph % (Auto) 41.5 H (25-40) % Nolan % (Auto) 7.2 (3-14) % Eos % (Auto) 3.1 (2-4) % Baso % (Auto) 0.7 (0-2) % Neut # (Auto) 5400 (8322-7271) /uL Lymph # (Auto) 4700 H (6133-4276) /uL Nolan # (Auto) 800 (0-900) /uL Eos # (Auto) 300 (0-450) /uL Baso # (Auto) 100 (0-100) /uL Sodium 139 (137-145) mmol/L Potassium 3.7 (3.4-5.1) mmol/L Chloride 104 (98-107) mmol/L Carbon Dioxide 25 (22-32) mmol/L BUN 24 H (7-17) mg/dL Creatinine 0.70 (0.52-1.04) mg/dL Estimated GFR > 60.0 (>60) mL/min BUN/Creatinine Ratio 34.3 H (6-22) Glucose 96 (70-100) mg/dL Calcium 8.9 (8.4-10.2) mg/dL Total Bilirubin 0.4 (0.2-1.3) mg/dL AST 29 (14-36) IU/L ALT 44 (9-52) IU/L Alkaline Phosphatase 74 (38-126) U/L Total Creatine Kinase 53 (30-135) U/L CK-MB (CK-2) TNP CK-MB (CK-2) Rel Index TNP Troponin I < 0.012 (0.01-0.034) ng/mL Total Protein 7.8 (6.3-8.2) g/dL Albumin 4.1 (3.5-5.0) g/dL Globulin 3.7 (1.7-4.1) g/dL Albumin/Globulin Ratio 1.1 (1.0-2.8) Lipase 39 (23-300) U/L Imaging Data Chest x-ray: Radiologist's impression: PROCEDURE: XR CHEST 2V INDICATIONS: shortness of breath TECHNIQUE: 2 views of the chest were acquired. COMPARISON: [facility], , XR CHEST 2V, 01/31/2018, 15:18. FINDINGS: Surgical changes and devices: Cholecystectomy clips. Lungs and pleura: Lungs are clear. No pleural effusions or pneumothorax. Mediastinum: Mediastinal contours are normal. Heart size is normal. Bones and chest wall: No suspicious bony abnormalities. Soft tissues appear unremarkable. IMPRESSION: No acute pulmonary process. Dictated by: Ashley Rincon M.D. on 09/17/2018 at 7:59 ECG Data Attestation: I personally reviewed and interpreted this ECG as follows: Prior ECG tracings: available for review Interpretation: normal sinus rhythm rate 89 AL interval [address] changes no T- wave inversions similar to previous EKG MDM Narrative Medical decision making narrative: patient's pain is reproducible with movement and palpation. This likely musculoskeletal. Low risk for cardiac disease. low risk for PE. Discharge Plan Departure Patient Disposition: Home Clinical Impression: Acute chest wall pain Discharge Date/Time: 09/17/18 08:36 Interventions: ED Discharge Assessment Last Done: 09/17/18 08:36 Instructions: Costochondritis, DI for Atypical Chest Pain Activity Restrictions/Additional Instructions: *You have been diagnosed with Chest wall pain *What to do: x-ray blood work and EKG are reassuring. This is likely musculoskeletal. Use ice or he has needed to help with pain. *Continue to take medications as directed Ibuprofen 600 mg every 6-8 hours if needed for pain *Follow up with your primary care provider in 2-3 days *Return to ER if you should have increasing pain, shortness of breath heart palpitations or any new, worsening or concerning symptoms Prescriptions: No Action propranolol 10 mg Tablet 10 mg PO BEDTIME RF: 0 omeprazole 20 mg Capsule,Delayed Release(Dr/Ec) 20 mg PO DAILY RF: 0 Referrals: Tonie Schmitt MD [Primary Care Provider] -
[2018-09-17 07:30] VITALS: BP 115/76; PULSE 84; RESP 11; O2SAT 100
[2018-09-17] MEDS: IBUPROFEN 400 MG TABLET 800 MG PO (07:34)
[2018-09-17 07:35] LABS: Add Manual Diff / Slide Review NO; Basophils Absolute Auto 100 /uL (0-100); Basophils Percent Auto 0.7 % (0-2); Eosinophils Absolute Auto 300 /uL (0-450); Eosinophils Percent Auto 3.1 % (2-4); Hematocrit 41.9 % (36-46); Lymphocytes Absolute Auto 4700 /uL (1100-4500); Lymphocytes Percent Auto 41.5 % (25-40); Mean Corpuscular HGB Conc 33.5 % (30-36); Mean Corpuscular Hemoglobin 30.4 PG (26-34); Mean Corpuscular Volume 90.7 fL (80-100); Monocytes Absolute Auto 800 /uL (0-900); Monocytes Percent Auto 7.2 % (3-14); Neutrophils Absolute Auto 5400 /uL (1500-7000); Neutrophils Percent Auto 47.5 % (50-75); Platelet Count 272 X10^3/uL (150-400); Red Blood Cell Count 4.62 X10^6/uL (4.0-5.2); Red Cell Distribution Width 12.9 % (11.6-14.8); White Blood Cell Count 11.4 X10^3/uL (4.5-11.0)
[2018-09-17 07:48] LABS: Alanine Aminotransferase 44 IU/L (9-52); Albumin 4.1 g/dL (3.5-5.0); Albumin Globulin Ratio 1.1 (1.0-2.8); Alkaline Phosphatase 74 U/L (38-126); Aspartate Aminotransferase 29 IU/L (14-36); BUN Creatinine Ratio 34.3 (6-22); Bilirubin Total 0.4 mg/dL (0.2-1.3); Blood Urea Nitrogen 24 mg/dL (7-17); Calcium 8.9 mg/dL (8.4-10.2); Carbon Dioxide 25 mmol/L (22-32); Chloride 104 mmol/L (98-107); Creatine Kinase 53 U/L (30-135); Estimated Glomerular Filt Rate > 60.0 mL/min (>60); Globulin 3.7 g/dL (1.7-4.1); Glucose 96 mg/dL (70-100); HEMOLYSIS < 15 (0-50); Lipase 39 U/L (23-300); Potassium 3.7 mmol/L (3.4-5.1); Sodium 139 mmol/L (137-145); Total Protein 7.8 g/dL (6.3-8.2)
--- NOTE | 2018-09-17 07:48 | PC.NURSE ---
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 She denies anything stressful in her life. Pain is intermittant and reproducible when palpated on chest, denies sob or nausea, skin pink, dry and intact. Pt became upset and started crying when asked about her allergies and she couldn't remember what she is allergic to.
[2018-09-17 07:59] LABS: Troponin I < 0.012 ng/mL (0.01-0.034)
[2018-09-17 08:00] VITALS: BP 120/72; PULSE 85; RESP 9; O2SAT 96
== END 2018-09-17 08:36 | disposition home or self-care (01) ==
PROVIDERS: Emergency Provider Emergency Medicine; Family Provider Family Medicine; PCP Family Medicine
DX: R07.89 Other chest pain (principal)
CPT/HCPCS: 36591; 71046; 80053; 82550; 83690; 84484; 85025; 93005; 93010; 99283; 99285

== ENCOUNTER → 2018-10-24 10:36 | Outpatient (REF) | payer OTHER, MEDICAID, SELFPAY ==
[2018-10-24 11:00] LABS: Influenza A and B by PCR Rapid Negative (Negative)
== END ==
LOC: LAB 10:36
PROVIDERS: Family Provider Family Medicine; PCP Family Medicine; Visit Provider Internal Medicine
DX: R05 Cough (principal); R53.83 Other fatigue
CPT/HCPCS: 87400

== ENCOUNTER 2018-12-02 03:03 | Emergency (ER) | payer OTHER, MEDICAID, SELFPAY ==
[2018-12-02 03:11] VITALS: BP 129/88; PULSE 116; RESP 20; TEMP 40.7; O2SAT 100; BMI 56.0
[2018-12-02 03:19] VITALS: TEMP 40.7
[2018-12-02] MEDS: ACETAMINOPHEN 325 MG TABLET 975 MG PO (03:19)
[2018-12-02] MEDS: ONDANSETRON 4 MG ODT SL (03:22)
[2018-12-02 04:34] VITALS: TEMP 37.9
--- NOTE | 2018-12-02 04:43 | ED_ITS ---
HPI - Fever General Chief Complaint: Fever Stated Complaint: coughing sneezing fever of 102.9 Time Seen by Provider: 12/02/18 04:39 Source: patient Mode of arrival: ambulatory Limitations: no limitations History of Present Illness HPI Narrative: Patient is a 33-year-old female who presents with fever body aches ongoing for the last 1 day. She denies any productive cough or shortness of breath. She has excessive fatigue. She is tolerating fluids. She is febrile in the ED. 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, malaise and weakness Related Data Home Medications Medication Instructions Recorded Confirmed omeprazole 20 mg PO DAILY 09/17/18 09/17/18 [id number]-[id number]-mauwdftd 250 1 tab PO Q4-6H PRN 09/19/18 09/19/18 mg-250 mg-65 mg tablet Previous Rx's Medication Instructions Recorded naproxen 500 mg tablet 500 mg PO BID #60 tab 09/19/18 amitriptyline 10 mg tablet 10 mg PO BEDTIME #90 tab MDD 60mg 09/20/18 oseltamivir [Tamiflu] 75 mg PO BID 5 Days #10 cap 12/02/18 Allergies Allergy/AdvReac Type Severity Reaction Status Date / Time ketorolac [KETOROLAC] Allergy Mild ITCHING Verified 12/02/18 03:08 ALL OVER, VOMITING hepatitis B virus vaccine Allergy Unknown Verified 12/02/18 03:08 [HEPATITIS B VIRUS VACCINE] latex [LATEX] Allergy Unknown Verified 12/02/18 03:08 tuberculin,PPD,multi-puncture Allergy Unknown Verified 12/02/18 03:08 [TUBERCULIN,PPD,MULTI-PUNCTURE] Review of Systems Review of Systems ROS Unobtainable: All systems reviewed & are unremarkable except as noted in HPI and below Constitutional Reports chills, Reports fever(s), Denies lethargy, Reports malaise and Reports weakness Eyes Denies change in vision, Denies eye discharge, Denies irritation and Denies loss of vision ENT Ears, Nose, Mouth, and Throat: Denies change in voice, Denies neck pain and Denies sore throat Cardiovascular Denies chest pain, Denies irregular heart rhythm, Denies lightheadedness, Denies palpitations and Denies orthopnea Gastrointestinal Gastrointestinal: Denies abdominal pain, Denies change in bowel habits, Denies diarrhea, Denies nausea and Denies vomiting Genitourinary Denies hematuria, Denies flank pain, Denies urinary incontinence and Denies urinary urgency Musculoskeletal Denies neck pain Integumentary/Breasts Denies pruritus, Denies erythema, Denies rash and Denies wounds Neurologic Denies loss of vision and Reports weakness Endocrine Denies palpitations [facility] Social History Smoking Status: Never smoker alcohol intake: never substance use type: does not use Exam Initial Vital Signs Initial Vital Signs: Vital Signs Temperature 105.2 F H 12/02/18 03:11 Pulse Rate 116 H 12/02/18 03:11 Respiratory Rate 20 12/02/18 03:11 Blood Pressure 129/88 12/02/18 03:11 Pulse Oximetry 100 12/02/18 03:11 GENERAL: Overweight female does appear that she feels well but and in no acute distress. HEENT: Head atraumatic,EOMI, pupils reactive, f CARDIOVASCULAR: Regular rate and rhythm without murmurs, rubs or gallops. RESPIRATORY: Breath sounds equal bilaterally, no wheezes rales or rhonchi. ABDOMEN: Soft, nontender. Normoactive bowel sounds all 4 quadrants. No guarding or rebound. : No CVA tenderness EXTREMITIES: Normal range of motion, no clubbing or edema. Neurovascularly intact NEUROLOGICAL: Alert and oriented x4.Normal gait and speech. Cranial nerves II through XII grossly intact. SKIN: Warm, dry, no laceration, no petechiae, no rashes or lesions. Course Orders Ordered: ED Orders 12/02/18 03:17 Influenza A and B by PCR Rapid Stat Discontinued Medications Acetaminophen (Tylenol) 975 mg PO NOW ONE Stop: 12/02/18 03:16 Last Admin: 12/02/18 03:19 Dose: 975 mg Ondansetron HCl (Zofran Odt) 4 mg SL NOW ONE Stop: 12/02/18 03:21 Last Admin: 12/02/18 03:22 Dose: 4 mg Vital Signs - 8 hr 12/02/18 03:11 12/02/18 03:19 12/02/18 04:34 Temperature 105.2 F H 105.2 F H 100.3 F H Pulse Rate 116 H Respiratory Rate 20 Blood Pressure 129/88 Pulse Oximetry 100 12/02/18 04:52 Temperature Pulse Rate 104 H Respiratory Rate 24 Blood Pressure Pulse Oximetry 98 MDM - Fever Lab Data Lab Results 12/02/18 Range/Units 03:17 Influenza A & B (PCR) Positive, type a H (Negative) Point of Care Testing Test Results Negative Urine Dip Bedside Urine Glucose Negative Bedside Urine Bilirubin - Negative Bedside Urine Ketone - Negative Urine Specific [place] 1.020 Bedside Urine Occult Blood - Negative Bedside Urine pH 7.5 Bedside Urine Protein - Negative Bedside Urine Urobilinogen - Negative Bedside Urine Nitrite - Negative Bedside Urine Leukocytes - Negative Esterase Discharge Plan Departure Patient Disposition: Home Clinical Impression: Influenza A Discharge Date/Time: 12/02/18 04:43 Interventions: ED Discharge Assessment Last Done: 12/02/18 05:00 Instructions: DI for H1N1 Influenza -- Adult Activity Restrictions/Additional Instructions: *You have been diagnosed with influenza a *What to do: Increase fluid intake, fever control *Continue to take medications as directed Tamiflu twice daily for 5 days--> faxed to [facility] in [place] The Tylenol as directed if needed for fever Naproxen to take twice daily this will also help with fever *Follow up with your primary care provider in 2-3 days *Return to ER if you should have increasing shortness of breath, fever not controlled or any new, worsening or concerning symptoms Prescriptions: New oseltamivir [Tamiflu] 75 mg capsule 75 mg PO BID 5 Days Qty: 10 RF: 0 No Action amitriptyline 10 mg tablet 10 mg PO BEDTIME MDD 60mg Qty: 90 RF: 2 omeprazole 20 mg Capsule,Delayed Release(Dr/Ec) 20 mg PO DAILY RF: 0 Excedrin Migraine 250-250-65 mg tablet 1 tab PO Q4-6H PRNRF: 0 naproxen [Naprosyn] 500 mg tablet 500 mg PO BID Qty: 60 RF: 2 Referrals: Tonie Schmitt MD [Primary Care Provider] - Stand Alone Forms: Work Release Note
[2018-12-02 04:52] VITALS: PULSE 104; RESP 24; O2SAT 98
== END 2018-12-02 04:43 | disposition home or self-care (01) ==
PROVIDERS: Emergency Provider Emergency Medicine; PCP Family Medicine
DX: J10.1 Influenza due to other identified influenza virus with other respiratory manifestations (principal)
CPT/HCPCS: 81003; 81025; 87400; 99282; 99283

== ENCOUNTER → 2019-09-24 09:52 | Outpatient (CLI) | payer OTHER, MEDICAID, SELFPAY ==
--- NOTE | 2019-09-24 | DI.RAD.S_ITS ---
PROCEDURE: XR KNEE LT 3V INDICATIONS: BILATERAL KNEE PAIN TECHNIQUE: 3 views of the knee were acquired. COMPARISON: [facility], , XR KNEE LT 3V, 01/04/2018, 16:30. FINDINGS: Bones: No fractures or dislocations. No suspicious bony lesions. Joint spaces are preserved. No significant patellar subluxation. Soft tissues: No joint effusion. No suspicious soft tissue calcifications. IMPRESSION: Unremarkable radiographic examination of left knee. Dictated by: Donavan Benson M.D. on 09/24/2019 at 11:38 Approved by: Donavan Benson M.D. on 09/24/2019 at 11:39
--- NOTE | 2019-09-24 | DI.RAD.S_ITS ---
PROCEDURE: XR KNEE RT 3V INDICATIONS: BILATERAL KNEE PAIN TECHNIQUE: 3 views of the knee were acquired. COMPARISON: [facility], CR, XR KNEE LT 3V, 01/04/2018, 16:30. FINDINGS: Bones: No fractures or dislocations. No suspicious bony lesions. Joint spaces are preserved. No significant patellar subluxation. Soft tissues: No joint effusion. No suspicious soft tissue calcifications. IMPRESSION: Unremarkable radiographic examination of right knee. Dictated by: Donavan Benson M.D. on 09/24/2019 at 11:39 Approved by: Donavan Benson M.D. on 09/24/2019 at 11:39
== END ==
PROVIDERS: PCP Family Medicine; Referring Provider Family Medicine; Visit Provider Family Medicine
DX: M25.561 Pain in right knee (principal); M25.562 Pain in left knee
CPT/HCPCS: 73562

== ENCOUNTER → 2020-05-07 17:32 | Outpatient (ROUT) | payer OTHER, SELFPAY | PROVIDERS: PCP Family Medicine; Visit Provider Family Medicine | DX: R21 Rash and other nonspecific skin eruption (principal) | CPT/HCPCS: 87070; 87075; 87077; 87147; 87186; 87205 ==

== ENCOUNTER → 2020-05-27 | Outpatient (CLI) | payer OTHER, SELFPAY | PROVIDERS: PCP Family Medicine; Referring Provider Internal Medicine; Visit Provider Internal Medicine | DX: Z23 Encounter for immunization (principal) | CPT/HCPCS: 90471; 90686 ==

== ENCOUNTER → 2020-09-16 08:05 | Outpatient (CLI) | payer OTHER, SELFPAY ==
--- NOTE | 2020-09-16 | DI.US.S_ITS ---
PROCEDURE: US PELVIC COMPLETE INDICATIONS: IRREGULAR, EXCESSIVE, AND FREQUENT MENSTRUATION TECHNIQUE: Real-time scanning was performed of the pelvic organs, with image documentation. Additional endovaginal scanning was necessary due to incomplete visualization of the adnexal and endometrial structures by transabdominal scanning. COMPARISON: [facility], US, PELVIC COMPLETE, 05/30/2017, 9:25. FINDINGS: Uterus: Uterus is normal in size at 8.9 x 5.2 x 3.8 cm. The endometrium measures 13 mm in combined thickness. Nabothian cysts are noted near the cervix. Ovaries: Right ovary measures 4.5 x 3.4 x 3.3 cm. There is a mildly complicated right ovarian cyst measuring 3.3 x 2.7 x 2.3 cm. Left ovary measures 4.1 x 2.8 x 3.1 cm. Normal right-sided arterial and venous waveforms. Left ovarian waveforms not well visualized secondary to adjacent bowel gas and patient scanning characteristics. Other: No pathologic free abdominal or pelvic fluid. IMPRESSION: Unremarkable evaluation of the pelvis without acute sonographic abnormalities. Dictated by: Sebastian Pacheco M.D. on 09/16/2020 at 9:37 Approved by: Sebastian Pacheco M.D. on 09/16/2020 at 10:58
[2020-09-16 09:44] LABS: Hemoglobin A1C% w Est Avg Glu 5.4 % (4.0-6.0)
[2020-09-16 09:51] LABS: Add Manual Diff / Slide Review NO; Basophils Absolute Auto 100 /uL (0-100); Basophils Percent Auto 0.9 % (0-2); Eosinophils Absolute Auto 200 /uL (0-450); Eosinophils Percent Auto 2.2 % (2-4); Hematocrit 36.1 % (36-46); Hemoglobin 12.2 g/dL (12.0-16.0); Lymphocytes Absolute Auto 3800 /uL (1100-4500); Lymphocytes Percent Auto 36.3 % (25-40); Mean Corpuscular HGB Conc 33.9 % (30-36); Mean Corpuscular Hemoglobin 30.3 PG (26-34); Mean Corpuscular Volume 89.3 fL (80-100); Monocytes Absolute Auto 700 /uL (0-900); Neutrophils Absolute Auto 5600 /uL (1500-7000); Neutrophils Percent Auto 53.6 % (50-75); Platelet Count 284 X10^3/uL (150-400); Red Blood Cell Count 4.04 X10^6/uL (4.0-5.2); Red Cell Distribution Width 13.4 % (11.6-14.8); White Blood Cell Count 10.4 X10^3/uL (4.5-11.0)
[2020-09-16 09:54] LABS: Alanine Aminotransferase 51 IU/L (<35); Albumin 3.7 g/dL (3.5-5.0); Albumin Globulin Ratio 1.1 (1.0-2.8); Alkaline Phosphatase 76 U/L (38-126); Aspartate Aminotransferase 41 IU/L (14-36); BUN Creatinine Ratio 33.9 (6-22); Bilirubin Total 0.2 mg/dL (0.2-1.3); Blood Urea Nitrogen 20 mg/dL (7-17); Calcium 8.6 mg/dL (8.4-10.2); Carbon Dioxide 27 mmol/L (22-32); Chloride 107 mmol/L (98-107); Estimated Glomerular Filt Rate > 60.0 mL/min (>60); Globulin 3.4 g/dL (1.7-4.1); Glucose 94 mg/dL (70-100); HEMOLYSIS < 15 (0-50); Potassium 3.9 mmol/L (3.4-5.1); Sodium 136 mmol/L (137-145); Total Protein 7.1 g/dL (6.3-8.2)
[2020-09-16 10:11] LABS: Follicle Stimulating Hormone 4.72 mIU/mL
== END ==
PROVIDERS: PCP Family Medicine; Referring Provider Family Medicine; Visit Provider Family Medicine
DX: N92.1 Excessive and frequent menstruation with irregular cycle (principal)
CPT/HCPCS: 36415; 76830; 76856; 80053; 83001; 83002; 83036; 84443; 85025

== ENCOUNTER → 2021-01-09 14:35 | Outpatient (CLI) | payer OTHER, SELFPAY ==
--- NOTE | 2021-01-09 | DI.RAD.S_ITS ---
PROCEDURE: XR ANKLE RT MIN 3V INDICATIONS: RIGHT ANKLE PAIN TECHNIQUE: 3 views of the ankle were acquired. COMPARISON: [facility], , ANKLE 3 VIEWS LEFT, 12/30/2006, 22:26. FINDINGS: Bones: No fractures or dislocations. Ankle mortise is normally aligned. No suspicious bony lesions. Retrocalcaneal and plantar bone spurs. Soft tissues: No tibiotalar joint effusion. Achilles tendon appears normal. IMPRESSION: Calcaneal enthesopathy. Dictated by: Antoni Mckeon [facility] Interpreted: Donavan Benson MD on 01/09/2021 at 14:53 Transcribed by: FABBY on 01/09/2021 at 14:53 Approved by: Donavan Benson M.D. on 01/09/2021 at 15:31
== END ==
PROVIDERS: PCP Family Medicine; Referring Provider Family Medicine; Visit Provider Family Medicine
DX: M25.571 Pain in right ankle and joints of right foot (principal); M77.31 Calcaneal spur, right foot
CPT/HCPCS: 73610

== ENCOUNTER 2023-04-03 07:40 | Emergency (ER) | payer BC, SELFPAY ==
[2023-04-03 07:49] VITALS: BP 126/94; PULSE 133; RESP 26; TEMP 36.9; O2SAT 98; BMI 45.7
[2023-04-03] MEDS: HYDROMORPHONE 1 MG INJ SUBCUT (08:01)
[2023-04-03] MEDS: predniSONE 20 MG TABLET 40 MG PO (08:02)
--- NOTE | 2023-04-03 09:06 | ED_ITS ---
HPI - Skin/Abscess/Foreign Bdy General Chief complaint: Skin/Abscess/Foreign Body Stated complaint: chemical burn on vaginal area per pt Time Seen by Provider: 04/03/23 07:57 History of Present Illness HPI narrative: Patient is a 37-year-old female who presents with severe pain in her vaginal region. She was told that she had HPV her partner has HPV she was started on Imiquimod. She used it last week without significant issue she also got a she had a yeast infection she used some Monistat she said it did not get any better she used it yesterday in his having severe internal vaginal pain. She was told to put it intravaginally. She is very tearful in obvious pain and discomfort. Related Data Home Medications Medication Instructions Recorded Confirmed omeprazole 20 mg capsule,delayed 20 mg PO DAILY 09/17/18 03/16/19 release [id number]-jpydzggcrwjnb-gxarqgkx 250 1 tab PO Q4-6H PRN 09/19/18 03/16/19 mg-250 mg-65 mg tablet (Excedrin Migraine) Previous Rx's Medication Instructions Recorded amitriptyline 10 mg tablet 10 mg PO BEDTIME #90 tabs 08/28/19 naproxen 500 mg tablet (Naprosyn) 500 mg PO BID #60 tabs 08/28/19 fluconazole 200 mg tablet 200 mg PO DAILY PRN itching #2 tabs 04/03/23 (Diflucan) hydrocodone 5 mg-acetaminophen 325 1 tab PO Q6H PRN pain #20 tabs 04/03/23 mg tablet lidocaine 5 % topical ointment 1 applic topical QID PRN pain #50 04/03/23 grams Allergies Allergy/AdvReac Type Severity Reaction Status Date / Time imiquimod Allergy Intermediate Rash Verified 04/03/23 09:30 ketorolac [KETOROLAC] Allergy Mild ITCHING Verified 03/16/19 16:01 ALL OVER, VOMITING hepatitis B virus vaccine Allergy Unknown Verified 03/16/19 16:01 [HEPATITIS B VIRUS VACCINE] latex [LATEX] Allergy Unknown Verified 03/16/19 16:01 tuberculin,PPD,multi-puncture Allergy Unknown Verified 03/16/19 16:01 [TUBERCULIN,PPD,MULTI-PUNCTURE] Review of Systems Review of Systems ROS Unobtainable: All systems reviewed & are unremarkable except as noted in HPI and below Patient History Medical History (Updated 04/03/23 @ 09:46 by Sarah Solomon DO) Anxiety Migraine Social History Smoking Status: Never smoker alcohol intake: never substance use type: does not use Smoking Status: Never smoker alcohol intake frequency: other Substance Use Type: does not use Exam Initial Vital Signs Initial Vital Signs: Vital Signs Temperature 98.4 F 04/03/23 07:49 Pulse Rate 133 H 04/03/23 07:49 Respiratory Rate 26 H 04/03/23 07:49 Blood Pressure 126/94 H 04/03/23 07:49 Pulse Oximetry 98 04/03/23 07:49 Oxygen Delivery Method Room Air 04/03/23 07:49 GENERAL: Alert tearful 37-year-old female CARDIOVASCULAR: peripheral pulses in tact, cap refill <2 sec RESPIRATORY: No respiratory distress, speaks in full sentences without difficulty PELVIC: External genitalia is normal, no abnormal lesions or vesicles, limited secondary to pain however at the opening internally bilateral labia multiple ulcerations some thickened discharge, very painful. EXTREMITIES: Normal range of motion, no clubbing or edema. Neurovascularly intact NEUROLOGICAL: Cranial nerves II through XII grossly intact. Normal gait and speech. SKIN: Warm, dry, no petechiae, no rashes or lesions. Course Orders Ordered: Discontinued Medications Hydrocodone Bitart/Acetaminophen (Hydrocodone/Acet 5/325 Tablet) 2 tab PO NOW ONE Stop: 04/03/23 09:22 Last Admin: 04/03/23 09:30 Dose: 2 tab Documented By: NR Hydromorphone HCl (Hydromorphone 1 Mg Inj) 1 mg SUBCUT NOW ONE Stop: 04/03/23 07:58 Last Admin: 04/03/23 08:01 Dose: 1 mg Documented By: NR Lidocaine HCl (Lidocaine 2% (Glydo) 6 Ml Gel) 6 ml TOP NOW ONE Stop: 04/03/23 09:16 Last Admin: 04/03/23 09:26 Dose: 6 ml Documented By: NR Prednisone (Prednisone 20 Mg Tablet) 40 mg PO NOW ONE Stop: 04/03/23 07:58 Last Admin: 04/03/23 08:02 Dose: 40 mg Documented By: NR Vital Signs Vital signs: Vital Signs - 8 hr 04/03/23 07:49 04/03/23 09:50 Temperature 98.4 F Pulse Rate 133 H 60 Respiratory Rate 26 H 14 Blood Pressure 126/94 H 113/72 Pulse Oximetry 98 97 Oxygen Delivery Method Room Air Room Air MDM - Skin/Abscess/Foreign Bdy MDM Narrative Medical decision making narrative: Patient 37-year-old female presenting with severe vaginal pain and burning likely reaction to cream. She is obvious ulcerations. She received Dilaudid which only helped a little bit. Ultimately the lidocaine jelly did help quite a bit. Unable to do a full speculum exam secondary to pain. She was given a dose of prednisone to possibly help with localized inflammation. Dr. Lo consulted in regards to treatment agrees with the lidocaine jelly and pain control. Avoiding the Imiquimod cream. Recommend Diflucan if needed for yeast infection nothing else intravaginally. At this time patient is afebrile no need for any further workup in the ED. She understands that this is going to take time to heal. Discharge Plan Departure Patient Disposition: Home Clinical Impression: Adverse drug reaction, Ulceration of vagina Instructions: DI for Adverse Drug Reaction -- Other Activity Restrictions/Additional Instructions: *You have been diagnosed with drug reaction, vaginal ulcers *What to do: At this time stop using the Imiquimod cream. This swollen fortunately take some time to heal. Try ice. Do not put anything in her vagina accept for the lidocaine gel. *Continue to take medications as directed Lidocaine gel every 4-6 hours if needed for pain, not continuously [place] 1-2 tablets every 6 hours if needed for severe pain Diflucan [address] infection [address] to take the 2nd tablet until ulcers have healed and if your still having symptoms. *Follow up with your primary care provider in 2-3 days or call [phone] *Return to ER if you should have fever abnormal discharge redness or irritation externally or any new, worsening or concerning symptoms CONTROLLED SUBSTANCE DISCHARGE (Narcotoic/benzodiazepine/Flexeril/Phenergan) 1. You have been prescribed narcotic medications, it does have acetaminophen/Tylenol/paracetamol in it, DO NOT TAKE MORE THAN 4,00mg in 24 hours of Tylenol. TRAMADOL DOES NOT CONTAIN TYLENOL 2. Please understand that we cannot provide further refills of narcotics, benzodiazepines or controlled substances through the ED and her pain management will need to be through your provider. 3. While on these medications you cannot drive or operate heavy machinery. 4. You cannot sign legal documents or perform any duties such as this. 5. As long as you're taking opiate pain medications he should also be taking a stool softener such as Colace, Dulcolax, MiraLAX or prune juice, to help avoid constipation. Prescriptions: New lidocaine 5 % ointment 1 applic topical QID PRN (Reason: pain) Qty: 50 0RF hydrocodone-acetaminophen 5-325 mg tablet 1 tab PO Q6H PRN (Reason: pain) Qty: 20 0RF fluconazole [Diflucan] 200 mg tablet 200 mg PO DAILY PRN (Reason: itching) Qty: 2 0RF No Action amitriptyline 10 mg tablet 10 mg PO BEDTIME MDD 60mg Qty: 90 1RF Rx Instructions: Take when going to bed. May increase by 1 tablet every 5 days as tolerated. naproxen [Naprosyn] 500 mg tablet 500 mg PO BID Qty: 60 0RF Rx Instructions: Take with food. Do not use other NSAIDs. omeprazole 20 mg Capsule,Delayed Release(Dr/Ec) 20 mg PO DAILY Excedrin Migraine 250-250-65 mg tablet 1 tab PO Q4-6H PRN Referrals: Tonie Schmitt MD [Primary Care Provider] - Ayaka Joel ARNP [Advanced Gasser Machine Operator] - Stand Alone Forms: Patient Portal/API, Work Release Note
[2023-04-03] MEDS: LIDOCAINE 2% (GLYDO) 6 ML GEL TOP (09:26)
[2023-04-03] MEDS: HYDROCODONE/ACET 5/325 TABLET 2 TAB PO (09:30)
[2023-04-03 09:50] VITALS: BP 113/72; PULSE 60; RESP 14; O2SAT 97
== END 2023-04-03 09:52 | disposition home or self-care (01) ==
PROVIDERS: Emergency Provider Emergency Medicine; PCP Family Medicine
DX: N76.5 Ulceration of vagina (principal); T50.905A Adverse effect of unspecified drugs, medicaments and biological substances, initial encounter
CPT/HCPCS: 96372; 99283; J1170

== ENCOUNTER → 2024-03-05 11:06 | Outpatient (CLI) | payer BC, SELFPAY ==
--- NOTE | 2024-03-05 11:08 | DI.RAD.S_ITS ---
PROCEDURE: XR CHEST 2V INDICATIONS: Nonspecific reaction to cell mediated immunity measurement o TECHNIQUE: 2 views of the chest were acquired. COMPARISON: [facility], CR, XR CHEST 2 VIEWS, 03/18/2021, 15:44. [facility], CR, XR CHEST 2V, 06/27/2019, 7:42. FINDINGS: Surgical changes and devices: Right upper quadrant surgical clips. Lungs and pleura: Lungs are clear. No pleural effusions or pneumothorax. Mediastinum: Mediastinal contours are normal. Heart size is normal. Bones and chest wall: No suspicious bony abnormalities. Soft tissues appear unremarkable. IMPRESSION: No acute cardiopulmonary abnormality is seen. Dictated by: Neeraj Beltran M.D. on 03/05/2024 at 14:04 Approved by: Neeraj Beltran M.D. on 03/05/2024 at 14:05
== END ==
PROVIDERS: PCP Family Medicine; Referring Provider Family Medicine; Visit Provider Family Medicine
DX: R76.12 Nonspecific reaction to cell mediated immunity measurement of gamma interferon antigen response without active tuberculosis (principal)
CPT/HCPCS: 71046

== ENCOUNTER → 2024-11-07 16:37 | Outpatient (CLI) | payer BC, SELFPAY ==
--- NOTE | 2024-11-07 16:39 | DI.US.S_ITS ---
PROCEDURE: US PELVIC COMPLETE INDICATIONS: pelvic pain TECHNIQUE: Real-time scanning was performed of the pelvic organs, with image documentation. Additional endovaginal scanning was necessary due to incomplete visualization of the adnexal and endometrial structures by transabdominal scanning. COMPARISON: [facility], , US PELVIC COMPLETE, 09/16/2020, 8:33. FINDINGS: Uterus: Anteverted positioning. 8 x 3.8 x 4.4 cm. Endometrium measures 4 mm. IUD is seen within the endometrium. Ovaries: Nonenlarged right ovary measuring 8 mL. Mildly enlarged left ovary measuring 17 mL. 3.7 x 2.6 cm cyst is present. No suspicious solid nodule identified. Other: No pathologic free fluid. Nabothian cysts are present. IMPRESSION: IUD is seen within the endometrium. Mildly enlarged left ovary with a 3.7 cm simple appearing cyst. Dictated by: Romulo Davis M.D. on 11/08/2024 at 6:59 Approved by: Romulo Davis M.D. on 11/08/2024 at 7:02
== END ==
LOC: US 16:38
PROVIDERS: PCP Family Medicine; Referring Provider Family Medicine; Visit Provider Family Medicine
DX: N83.202 Unspecified ovarian cyst, left side (principal); R10.2 Pelvic and perineal pain; N88.8 Other specified noninflammatory disorders of cervix uteri; Z97.5 Presence of (intrauterine) contraceptive device
CPT/HCPCS: 76830; 76856

== ENCOUNTER 2024-11-18 21:48 | Emergency (ER) | payer BC, SELFPAY ==
[2024-11-18 21:51] VITALS: BP 129/80; PULSE 94; RESP 18; TEMP 36.4; O2SAT 100; BMI 38.9
[2024-11-18 22:18] LABS: Add Manual Diff / Slide Review NO; Basophils Absolute Auto 100 /uL (0-100); Basophils Percent Auto 0.9 % (0-2); Eosinophils Absolute Auto 100 /uL (0-450); Eosinophils Percent Auto 1.7 % (2-4); Hematocrit 40.2 % (36-46); Hemoglobin 13.9 g/dL (12.0-16.0); Lymphocytes Absolute Auto 3200 /uL (1100-4500); Lymphocytes Percent Auto 37.8 % (25-40); Mean Corpuscular HGB Conc 34.5 % (30-36); Mean Corpuscular Hemoglobin 32.1 PG (26-34); Mean Corpuscular Volume 93.2 fL (80-100); Monocytes Absolute Auto 600 /uL (0-900); Monocytes Percent Auto 7.6 % (3-14); Neutrophils Absolute Auto 4400 /uL (1500-7000); Platelet Count 254 X10^3/uL (150-400); Red Blood Cell Count 4.31 X10^6/uL (4.0-5.2); Red Cell Distribution Width 12.6 % (11.6-14.8); White Blood Cell Count 8.5 X10^3/uL (4.5-11.0)
[2024-11-18 22:26] LABS: Alanine Aminotransferase 32 IU/L (<35); Albumin 4.4 g/dL (3.5-5.0); Albumin Globulin Ratio 1.3 (1.0-2.8); Alkaline Phosphatase 82 U/L (38-126); Aspartate Aminotransferase 42 IU/L (14-36); BUN Creatinine Ratio 27.6 (6-22); Bilirubin Total 0.4 mg/dL (0.2-1.3); Blood Urea Nitrogen 27 mg/dL (7-17); Calcium 9.1 mg/dL (8.4-10.2); Carbon Dioxide 26 mmol/L (22-32); Chloride 106 mmol/L (98-107); Estimated Glomerular Filt Rate > 60 mL/min (>60); Globulin 3.3 g/dL (1.7-4.1); Glucose 90 mg/dL (70-99); HEMOLYSIS < 15 (0-50); Lipase 115 U/L (23-300); Potassium 3.6 mmol/L (3.4-5.1); Sodium 139 mmol/L (137-145); Total Protein 7.7 g/dL (6.3-8.2)
--- NOTE | 2024-11-18 23:34 | DI.CT.S_ITS ---
PROCEDURE: CT ABDOMEN PELVIS W CON INDICATIONS: pain, constipation TECHNIQUE: After the administration of intravenous contrast, axial sections acquired from the lung bases to the pubic symphysis. Coronal and sagittal reformats were performed. For radiation dose reduction, the following was used: automated exposure control, adjustment of mA and/or kV according to patient size. COMPARISON: [facility], US, US PELVIC COMPLETE, 11/07/2024, 16:49. [facility], CT, ABDOMEN/PELVIS WITH CONTRAST, 10/14/2017, 20:14. FINDINGS: Image quality: Diagnostic. Lower Chest: No significant findings. ABDOMEN: Liver: No solid mass. Gallbladder: Absent. Biliary ducts: No biliary dilation. Pancreas: No ductal dilation. Spleen: Size is within normal limits. Small splenule. Adrenal Glands: No adrenal nodules. Kidneys and Ureters: No hydronephrosis. No solid mass. No complex renal cystic lesion which requires follow up. Stomach and Bowel: Normal colonic caliber, without significant wall thickening. Diverticulosis. No small bowel obstruction. Normal appendix. Peritoneum: No abnormal intraperitoneal fluid. No free air. Ventral Wall: Tiny fat containing umbilical hernia. Abdominal Nodes: No retroperitoneal or mesenteric adenopathy by size criteria. Vessels: Aorta and inferior vena cava are normal in size. PELVIS: Pelvic Organs: Left ovarian cyst measuring 2.5 cm, (2/112). Anteverted uterus. IUD in the uterus. Bladder: No bladder wall thickening, accounting for underdistention. Pelvic Nodes: No enlarged lymph nodes. Miscellaneous: No inguinal hernias are seen. Bones: No aggressive osseous abnormality. IMPRESSION: 1. No acute abnormality identified. Normal appendix. 2. Small left ovarian cyst measuring 2.5 cm. Dictated by: Micha Arriaga M.D. on 11/19/2024 at 1:03 Approved by: Micha Arriaga M.D. on 11/19/2024 at 1:08
--- NOTE | 2024-11-18 23:49 | PC.NURSE ---
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
[2024-11-19] VITALS (18 sets, daily range): BP systolic 94–128; BP diastolic 53–75; PULSE 57–89; RESP 16–20; O2SAT 98–100
--- NOTE | 2024-11-19 00:33 | ED_ITS ---
HPI - Abdominal Pain General Chief Complaint: Abdominal Pain Stated Complaint: poss bowel obstruction 7+ days since last BM Time Seen by Provider: 11/19/24 00:26 Source: patient Mode of arrival: Ambulatory History of Present Illness HPI narrative: 39-year-old female with right-sided abdominal discomfort with very little bowel movement over the last 5 days, no fevers or chills. Some nausea without emesis. No injury trauma new activities. No painful or frequent urination. No cough or shortness of breath or chest discomfort. Related Data Previous Rx's Medication Instructions Recorded hydrocodone 5 mg-acetaminophen 325 1 tab PO Q6H PRN pain #20 tabs 04/03/23 mg tablet lidocaine 5 % topical ointment 1 applic topical QID PRN pain #50 04/03/23 grams fluconazole 150 mg tablet 150 mg PO Q3D 2 doses #2 tabs 04/28/23 Allergies Allergy/AdvReac Type Severity Reaction Status Date / Time imiquimod Allergy Intermediate Rash Verified 04/28/23 13:14 ketorolac [KETOROLAC] Allergy Mild ITCHING Verified 04/28/23 13:14 ALL OVER, VOMITING hepatitis B virus vaccine Allergy Unknown Verified 04/28/23 13:14 [HEPATITIS B VIRUS VACCINE] latex [LATEX] Allergy Unknown Verified 04/28/23 13:14 tuberculin,PPD,multi-puncture Allergy Unknown Verified 04/28/23 13:14 [TUBERCULIN,PPD,MULTI-PUNCTURE] Patient History Medical History (Updated 11/19/24 @ 05:42 by Jorge Gr MD) Anxiety Migraine Social History Smoking Status: Never smoker alcohol intake: never substance use type: does not use Smoking Status: Never smoker alcohol intake frequency: other Exam Narrative Exam Narrative: GENERAL: Well-developed patient, in mild distress. HEAD: Atraumatic. Normocephalic. EYES: Pupils equal round and reactive. Extraocular motions intact. No scleral icterus. No injection or drainage. ENT: Nose without bleeding, purulent drainage. Throat without erythema, tonsillar hypertrophy or exudate. Airway patent. NECK: Trachea midline. Non tender CARDIOVASCULAR: Regular rate and rhythm without murmurs, gallops, or rubs. RESPIRATORY: Clear to auscultation. Breath sounds equal bilaterally. No wheezes, rales, or rhonchi. GASTROINTESTINAL: Abdomen soft, non-tender, nondistended. EXTREMITIES: No edema or joint tenderness. BACK: Nontender without deformity or crepitance. No flank tenderness. NEURO: AOx3. Motor functions grossly nonfocal SKIN: No rash or erythema of visible areas Initial Vital Signs Initial Vital Signs: Vital Signs Temperature 97.5 F L 11/18/24 21:51 Pulse Rate 94 H 11/18/24 21:51 Respiratory Rate 18 11/18/24 21:51 Blood Pressure 129/80 11/18/24 21:51 Pulse Oximetry 100 11/18/24 21:51 Oxygen Delivery Method Room Air 11/18/24 21:51 Course Orders Ordered: Discontinued Medications Hydromorphone HCl (Hydromorphone 0.5 Mg Inj) 0.5 mg IV NOW ONE Stop: 11/19/24 01:12 Last Admin: 11/19/24 01:16 Dose: 0.5 mg Documented By: JOSE Hydromorphone HCl (Hydromorphone 0.5 Mg Inj) 0.5 mg IV NOW ONE Stop: 11/19/24 03:20 Last Admin: 11/19/24 03:23 Dose: 0.5 mg Documented By: JOSE Ondansetron HCl (Ondansetron 4 Mg/2 Ml Inj) 4 mg IV NOW PRN PRN Reason: Nausea And Vomiting Last Admin: 11/19/24 01:05 Dose: 4 mg Documented By: JOSE Ondansetron HCl (Ondansetron 4 Mg Odt) 4 mg PO NOW PRN PRN Reason: Nausea And Vomiting Tramadol HCl (Tramadol 50 Mg Tablet) 100 mg PO NOW ONE Stop: 11/19/24 04:54 Last Admin: 11/19/24 05:12 Dose: 100 mg Documented By: JOSE Tramadol HCl (Tramadol 50 Mg Prepack) 1 bottle MISC DIRECTED ONE Stop: 11/19/24 05:44 Last Admin: 11/19/24 05:48 Dose: 1 bottle Documented By: JOSE Vital Signs Vital signs: Vital Signs - 8 hr 11/18/24 21:51 11/19/24 00:00 11/19/24 00:00 Temperature 97.5 F L Pulse Rate 94 H 65 Respiratory Rate 18 16 Blood Pressure 129/80 128/70 Pulse Oximetry 100 100 Oxygen Delivery Method Room Air Room Air 11/19/24 00:30 11/19/24 00:30 11/19/24 01:00 Temperature Pulse Rate 76 89 Respiratory Rate 16 18 Blood Pressure 107/74 Pulse Oximetry 100 99 Oxygen Delivery Method Room Air Room Air 11/19/24 01:03 11/19/24 01:03 11/19/24 01:17 Temperature Pulse Rate 88 87 Respiratory Rate 20 20 Blood Pressure 104/71 Pulse Oximetry 100 100 Oxygen Delivery Method Room Air Room Air 11/19/24 01:18 11/19/24 01:18 11/19/24 01:30 Temperature Pulse Rate 85 57 L Respiratory Rate 16 16 Blood Pressure 116/67 Pulse Oximetry 100 100 Oxygen Delivery Method Room Air Room Air 11/19/24 01:31 11/19/24 01:31 11/19/24 02:05 Temperature Pulse Rate 58 L 67 Respiratory Rate 16 Blood Pressure 114/56 L Pulse Oximetry 100 100 Oxygen Delivery Method Room Air 11/19/24 02:25 11/19/24 02:26 11/19/24 02:26 Temperature Pulse Rate 68 69 Respiratory Rate 20 Blood Pressure 105/75 Pulse Oximetry 100 100 Oxygen Delivery Method Room Air 11/19/24 02:30 11/19/24 02:30 11/19/24 03:00 Temperature Pulse Rate 59 L Respiratory Rate Blood Pressure 106/65 104/57 L Pulse Oximetry 100 Oxygen Delivery Method 11/19/24 03:00 11/19/24 03:30 11/19/24 03:30 Temperature Pulse Rate 61 84 Respiratory Rate Blood Pressure 107/75 Pulse Oximetry 100 98 Oxygen Delivery Method 11/19/24 04:00 11/19/24 04:00 11/19/24 04:30 Temperature Pulse Rate 69 Respiratory Rate Blood Pressure 104/66 95/66 Pulse Oximetry 99 Oxygen Delivery Method 11/19/24 04:30 Temperature Pulse Rate 82 Respiratory Rate 18 Blood Pressure Pulse Oximetry 98 Oxygen Delivery Method MDM - Abdominal Pain Lab Data Attestation: I reviewed the patient's lab results. Lab results narrative: White blood cell count 8500, hemoglobin normal. BUN creatinine normal. Glucose 90. Slight AST elevation other liver functions normal. Lipase normal. 11/18/24 22:05 11/18/24 22:05 Labs: Lab Results 11/18/24 Range/Units 22:05 WBC 8.5 (4.5-11.0) X10^3/uL RBC 4.31 (4.0-5.2) X10^6/uL Hgb 13.9 (12.0-16.0) g/dL Hct 40.2 (36-46) % MCV 93.2 (80-100) fL MCH 32.1 (26-34) PG MCHC 34.5 (30-36) % RDW 12.6 (11.6-14.8) % Plt Count 254 (150-400) X10^3/uL Neut % (Auto) 52.0 (50-75) % Lymph % (Auto) 37.8 (25-40) % [place] % (Auto) 7.6 (3-14) % Eos % (Auto) 1.7 L (2-4) % Baso % (Auto) 0.9 (0-2) % Neut # (Auto) 4400 (5934-1190) /uL Lymph # (Auto) 3200 (9209-7612) /uL [place] # (Auto) 600 (0-900) /uL Eos # (Auto) 100 (0-450) /uL Baso # (Auto) 100 (0-100) /uL Sodium 139 (137-145) mmol/L Potassium 3.6 (3.4-5.1) mmol/L Chloride 106 (98-107) mmol/L Carbon Dioxide 26 (22-32) mmol/L BUN 27 H (7-17) mg/dL Creatinine 0.98 (0.52-1.04) mg/dL Estimated GFR > 60 (>60) mL/min BUN/Creatinine Ratio 27.6 H (6-22) Glucose 90 (70-99) mg/dL Calcium 9.1 (8.4-10.2) mg/dL Total Bilirubin 0.4 (0.2-1.3) mg/dL AST 42 H (14-36) IU/L ALT 32 (<35) IU/L Alkaline Phosphatase 82 (38-126) U/L Total Protein 7.7 (6.3-8.2) g/dL Albumin 4.4 (3.5-5.0) g/dL Globulin 3.3 (1.7-4.1) g/dL Albumin/Globulin Ratio 1.3 (1.0-2.8) Lipase 115 (23-300) U/L Point of care testing: Point of Care Testing Test Results Negative Urine Dip Bedside Urine Glucose Negative Bedside Urine Bilirubin - Negative Bedside Urine Ketone - Negative Urine Specific [place] 1.015 Bedside Urine Occult Blood - Negative Bedside Urine pH 6.0 Bedside Urine Protein - Negative Bedside Urine Urobilinogen - Negative Bedside Urine Nitrite - Negative Bedside Urine Leukocytes - Negative Esterase MDM Narrative Medical decision making narrative: Right-sided back and abdominal pain of unclear cause. No injury. History of kidney stones. Afebrile, sirs screen negative. Patient in position of comfort standing. No back injury recalled. No leg weakness. Labs pending. Screening labs unremarkable. Patient would like imaging after we discussed advanced imaging options. CT abdomen and pelvis ordered. CT abdomen and pelvis. Impressions: ?No acute abnormality identified. Normal appendix. Small ovarian left ovarian cyst measuring 2.5 cm. ? See radiology report. Ultrasound pelvis. Normal sonographic appearance of the uterus endometrium and bilateral adnexa. Left ovarian follicle described in text portion. See radiology report. Copies of imaging reports provided, with discussion of negative findings. No significant stool burden but trouble with normal bowel movements, consider OTC enema and miralax. Further evaluation for now as outpatient. Tramadol home pack. DC home with family. Discharge Plan Departure Patient Disposition: Home Clinical Impression: Abdominal pain, Ovarian cyst Activity Restrictions/Additional Instructions: Right-sided back and abdominal discomfort of unclear cause. Laboratory studies generally unremarkable. test negative. CT abdomen and pelvis showed no acute changes, did mention left-sided ovarian cyst. Additional imaging ultrasound pelvis was therefore performed, showing only a left follicular small cyst, good blood flow to both ovaries, no obvious objective imaging confirmation of a process to explain your right-sided symptoms. [facility] not admit to having a normal bowel movement for quite some time. No obstructive changes on CT scanning, consider [id number] Fleet's enema and [id number] MiraLax if any constipation symptoms are related to your discomfort. Recheck with your regular doctor in the next couple of days. Return to this/nearest emergency department for any change worsening symptoms or any concerns prior. Prescriptions: No Action fluconazole 150 mg tablet 150 mg PO Q3D Qty: 2 1RF lidocaine 5 % ointment 1 applic topical QID PRN (Reason: pain) Qty: 50 0RF hydrocodone-acetaminophen 5-325 mg tablet 1 tab PO Q6H PRN (Reason: pain) Qty: 20 0RF Referrals: Tonie Schmitt MD [Primary Care Provider] - Stand Alone Forms: Patient Portal/API/Survey
[2024-11-19] MEDS: ONDANSETRON 4 MG/2 ML INJ IV (01:05)
[2024-11-19] MEDS: HYDROMORPHONE 0.5 MG INJ IV ×2 (01:16→03:23)
--- NOTE | 2024-11-19 01:33 | DI.US.S_ITS ---
PROCEDURE: US PELVIC COMPLETE INDICATIONS: lower abd pain, eval for cyst/torsion TECHNIQUE: Real-time scanning was performed of the pelvic organs, with image documentation. Additional endovaginal scanning was necessary due to incomplete visualization of the adnexal and endometrial structures by transabdominal scanning. COMPARISON: [facility], US, US PELVIC COMPLETE, 11/07/2024, 16:49. FINDINGS: Uterus: Uterus is anteverted and normal in size at 7.3 x 4.2 x 4.5 cm. The myometrium is homogeneous. The endometrium measures 10 mm combined thickness. Intrauterine device in place. Ovaries: The right ovary measures 2.9 x 1.9 x 2.3 cm. The left ovary measures 2.6 x 2.2 x 2.8 cm. Left ovarian dominant follicle versus simple cyst measuring 2.2 cm. The ovaries have a normal sonographic appearance with arterial and venous flow bilaterally. Less than 12 follicles can be seen in each ovary. No adnexal masses are seen. Other: No pathologic free abdominal or pelvic fluid. IMPRESSION: Normal appearance of the uterus and ovaries. Dominant follicle versus simple cyst in the left ovary measuring 2.2 cm. Findings are concordant with preliminary interpretation provided by [facility]. We strive to produce accurate, complete, and clear reports of imaging services. To assist us in improving patient care, this report was composed using standard report templates and voice recognition software. Therefore, it may contain abnormal punctuation, insertions and/or omissions. Occasional wrong-word or sound-alike substitutions may occur. Though we review the report and make efforts to correct it, we do recommend that the report be read carefully in proper context to recognize any text inaccuracies. Dictated by: Neeraj Beltran M.D. on 11/19/2024 at 7:59 Approved by: Neeraj Beltran M.D. on 11/19/2024 at 8:01
--- NOTE | 2024-11-19 01:43 | PC.NURSE ---
Pt ambulatory to restroom without difficulty or assistance
--- NOTE | 2024-11-19 04:01 | PC.NURSE ---
Pt noted to be crying. RN inquired about current pain level s/p med administration and pt states no change, no better or worse. States crying is out of frustration of continued pain.
--- NOTE | 2024-11-19 04:41 | PC.NURSE ---
Pt ambulatory to restroom without difficulty or assistance
[2024-11-19] MEDS: TRAMADOL 50 MG TABLET 100 MG PO (05:12)
[2024-11-19] MEDS: TRAMADOL 50 MG PREPACK 1 BOTTLE MISC (05:48)
== END 2024-11-19 06:01 | disposition home or self-care (01) ==
PROVIDERS: Emergency Provider Emergency Medicine; PCP Family Medicine
DX: R10.9 Unspecified abdominal pain (principal); N83.202 Unspecified ovarian cyst, left side; R11.0 Nausea
CPT/HCPCS: 74177; 76830; 76856; 80053; 81003; 81025; 83690; 85025; 93976; 96374; 96375; 96376; 99284; J1171; J2405; Q9967

== ENCOUNTER → 2025-02-04 15:46 | Outpatient (CLI) | payer BC, SELFPAY ==
--- NOTE | 2025-02-04 15:48 | DI.RAD.S_ITS ---
PROCEDURE: XR CHEST 2V INDICATIONS: POSITIVE QUANTIFERON GOLD TECHNIQUE: 2 views of the chest were acquired. COMPARISON: [facility], CR, XR CHEST 2V, 03/05/2024, 11:15. FINDINGS: Surgical changes and devices: None. Lungs and pleura: Lungs are clear. No pleural effusions or pneumothorax. Mediastinum: Mediastinal contours are normal. Heart size is normal. Bones and chest wall: No suspicious bony abnormalities. Soft tissues appear unremarkable. IMPRESSION: No acute cardiopulmonary abnormality is seen. Dictated by: Uri Miller M.D. on 02/05/2025 at 5:44 Approved by: Uri Miller M.D. on 02/05/2025 at 6:01
== END ==
PROVIDERS: PCP Family Medicine; Referring Provider Family Medicine; Visit Provider Family Medicine
DX: R76.12 Nonspecific reaction to cell mediated immunity measurement of gamma interferon antigen response without active tuberculosis (principal)
CPT/HCPCS: 71046

== ENCOUNTER → 2025-05-31 09:34 | Outpatient (CLI) | payer BC, SELFPAY ==
[2025-05-31 11:12] LABS: Hemoglobin A1C% w Est Avg Glu 4.7 % (4.0-6.0)
[2025-05-31 11:46] LABS: Alanine Aminotransferase 24 IU/L (<35); Albumin 3.8 g/dL (3.5-5.0); Albumin Globulin Ratio 1.3 (1.0-2.8); Alkaline Phosphatase 76 U/L (38-126); Blood Urea Nitrogen 22 mg/dL (7-17); Calcium 8.9 mg/dL (8.4-10.2); Carbon Dioxide 23 mmol/L (22-32); Chloride 109 mmol/L (98-107); Cholesterol 134 mg/dL (140-199); Estimated Glomerular Filt Rate > 60 mL/min (>60); Globulin 3.0 g/dL (1.7-4.1); Glucose 85 mg/dL (70-99); HDL Cholesterol 50 mg/dL (40-60); HEMOLYSIS < 15 (0-50); Potassium 4.4 mmol/L (3.4-5.1); Sodium 140 mmol/L (137-145); Total Protein 6.8 g/dL (6.3-8.2); Triglycerides 64 mg/dL (35-150)
[2025-05-31 12:03] LABS: Vitamin D 25 Hydroxy (D3) < 12.8 ng/mL (30.0-100.0)
[2025-05-31 12:15] LABS: TSH w/ Reflex to FT4 0.67 uIU/mL (0.47-4.68)
[2025-05-31 12:50] LABS: Folate 6.9 ng/mL (2.76-20.0); Vitamin B12 755 pg/mL (239-931)
== END ==
LOC: LAB 09:39
PROVIDERS: PCP Family Medicine; Referring Provider Family Medicine; Visit Provider Family Medicine
DX: E78.5 Hyperlipidemia, unspecified (principal); K90.9 Intestinal malabsorption, unspecified; R53.83 Other fatigue; R73.9 Hyperglycemia, unspecified
CPT/HCPCS: 36415; 80053; 80061; 82306; 82607; 82746; 83036; 84443